=== PATIENT | male | born 1935 | race Caucasian/White ===

== ENCOUNTER → 2017-01-31 | Outpatient (CLI) | payer MEDICARE ==
[2017-01-31 09:33] LABS: ANION GAP 12 (5-19); BLOOD UREA NITROGEN 23 mg/dL (7-20); CALCIUM 9.7 mg/dL (8.4-10.2); CARBON DIOXIDE 23 mmol/L (22-30); CHLORIDE 107 mmol/L (98-107); CREATININE RESULT 1.38 mg/dL (0.52-1.25); GLUCOSE 103 mg/dL (75-110); POTASSIUM 4.3 mmol/L (3.6-5.0); SODIUM 141.6 mmol/L (137-145)
== END ==
LOC: LAB 08:52
PROVIDERS: ATTEND Internal Medicine Nephrology
DX: I12.9 Hypertensive chronic kidney disease with stage 1 through stage 4 chronic kidney disease, or unspecified chronic kidney disease (principal); N18.3 Chronic kidney disease, stage 3 (moderate)
CPT/HCPCS: 36415; 80048

== ENCOUNTER → 2017-04-24 | Outpatient (CLI) | payer MEDICARE ==
[2017-04-24 11:03] LABS: ABSOLUTE BASOPHILS # (AUTO) 0.1 10^3/uL (0.0-0.2); ABSOLUTE EOSINOPHILS # (AUTO) 0.4 10^3/uL (0.0-0.6); ABSOLUTE LYMPHOCYTES (AUTO) 1.8 10^3/uL (0.5-4.7); ABSOLUTE MONOCYTES (AUTO) 0.9 10^3/uL (0.1-1.4); ABSOLUTE NEUT (AUTO) 4.1 10^3/uL (1.7-8.2); BASOPHILS % (AUTO) 1.2 % (0-2); EOSINOPHILS % (AUTO) 5.9 % (0-6); HEMATOCRIT 47.7 % (37.9-51.0); HEMOGLOBIN 15.9 g/dL (13.5-17.0); LYMPHOCYTES % (AUTO) 24.6 % (13-45); MEAN CORPUSCULAR HEMOGLOBIN 32.5 pg (27.0-33.4); MEAN CORPUSCULAR HGB CONC 33.3 g/dL (32.0-36.0); MEAN CORPUSCULAR VOLUME 98 fl (80-97); MONOCYTES % (AUTO) 12.5 % (3-13); RED BLOOD COUNT 4.89 10^6/uL (4.35-5.55); RED CELL DISTRIBUTION WIDTH 12.9 % (11.5-14.0); SEGMENTED NEUTROPHILS % (AUTO) 55.8 % (42-78); WHITE BLOOD COUNT 7.4 10^3/uL (4.0-10.5)
[2017-04-24 11:40] LABS: IRON 93.2 ug/dL (49-181)
== END ==
LOC: LAB 10:50
PROVIDERS: ATTEND Specialist
DX: R10.9 Unspecified abdominal pain (principal); D50.9 Iron deficiency anemia, unspecified
CPT/HCPCS: 36415; 82728; 83540; 85025

== ENCOUNTER 2017-05-14 08:26 | Day surgery (SDC) | payer MEDICARE ==
--- NOTE | 2017-05-08 11:00 | HISTORY AND PHYSICAL E ---
History and Physical NAME: DAKOTAH LOCKHART : 1935 AGE: 81Y ADMITTED: 05/14/2017 ROOM: CHIEF COMPLAINT: Abdominal pain. EXAM: Upper endoscopy. HISTORY OF PRESENT ILLNESS: The patient does have history of colorectal polyps. At this time he presented with abdominal pain. Patient for upper endoscopy. I saw him 2011. His colon showed diverticulosis. SOCIAL HISTORY: He used to smoke, drinks socially, , 2 children. ALLERGIES: Negative. REVIEW OF SYSTEMS: RESPIRATORY: COPD. CARDIAC: No chest pain. ENDOCRINE: Negative. PHYSICAL EXAMINATION: VITAL SIGNS: Blood pressure 120/70, pulse 80, respirations 18, temperature is 98. HEAD, EYES, EARS, NOSE AND THROAT: Normal. ABDOMEN: Soft. NEUROLOGIC EXAM: Negative. PAST MEDICAL HISTORY: The patient is known to have coronary artery disease. He is on Plavix and he takes baby aspirin. Scope 2011 shows descending colon polyp, ectasia in the cecum. 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 The patient was done 2011. Another colonoscopy done in the year 2015. Again, diverticulosis, question AV malformation in the cecum, COPD, sleep apnea. CONCLUSION: Abdominal pain. PLAN: Upper scope scheduled for 05/14. Stop Plavix and aspirin 3 days prior to endoscopy regarding abdominal pain. DICTATING PHYSICIAN: AMELIE CASE M.D. [id number] PHY#: [id number] ID: [id number] JOB#: [id number] ACCT: [id number] cc:AMELIE CASE M.D. >
[~2017-05-14 08:26] MED LIST: EPINEPHRINE INJ 1 MG/10 ML DISP.SYRIN ONE; FENTANYL CITRATE INJ/PF 100 MCG/2 ML AMPUL ONE; FLUMAZENIL INJ 0.5 MG/5 ML VIAL ONE; GLYCOPYRROLATE INJ 0.4 MG/2 ML VIAL ONE; NALOXONE HCL INJ/PF 0.4 MG/1 ML SDV ONE; ONDANSETRON HCL INJ/PF 4 MG/2 ML SDV ONE
[2017-05-14] MEDS: MIDAZOLAM 2 MG/2 ML INJ ONE ×2 (09:07→09:10)
[2017-05-14 10:36] VITALS: BP 105/59
--- NOTE | 2017-05-14 12:23 | DISCHARGE SUMMARY E ---
Discharge Summary NAME: DAKOTAH LOCKHART : 1935 AGE: 81Y ADMITTED: 05/14/2017 DISCHARGED: 05/14/2017 PROCEDURE: EGD. HISTORY: This 81-year-old patient presented with dysphagia. Patient is a cardiac patient. He has stents. He takes Plavix and aspirin. Today's upper scope shows no definitive stricture, question lower esophageal ring, question early narrowing, some erosions at the GE junction. Because of the cardiac risk, I did not feel the urge to dilate today. I am going to obtain a barium swallow and discharge him on a soft, baby food, nonchewable diet. If the barium swallow shows definite stricture I am going to stop his Plavix for 5 days and aspirin 5 days. There was some friability at the junction just passing the scope. For future endoscopy, we will stop his Plavix for 5 days and aspirin 5 days and consider dilatation if the barium swallow shows a stricture. DICTATING PHYSICIAN: AMELIE CASE M.D. [id number] Y#: [id number] ID: [id number] JOB#: [id number] ACCT: [id number] cc:AMELIE CASE M.D. >
--- NOTE | 2017-05-14 13:45 | OPERATIVE REPORT E ---
Operative Report NAME: DAKOTAH LOCKHART : 1935 AGE: 81Y DATE OF SURGERY: 05/14/2017 ROOM: PREOPERATIVE DIAGNOSIS: Dysphagia. POSTOPERATIVE DIAGNOSES: 1. Esophagitis, mild. 2. Possibility of early stricture. 3. Possibility of lower esophageal ring. 4. Mild gastritis. 5. Mild duodenitis. PROCEDURE: 1. Esophagoscopy. 2. Gastroscopy. 3. Duodenoscopy. SURGEON: AMELIE CASE M.D. ANESTHESIA: Versed 3 and fentanyl 50. TISSUE REMOVED OR ALTERED: None. PROCEDURE: Baby scope passed under guided vision. No difficulties. Esophagoscopy junction at 40. There is possibility of early lower esophageal ring. Possibility of early stricture. Gastroscopy: Mild gastritis. Duodenoscopy: Mild duodenitis. Patient is a cardiac patient and a stent. We stopped his Plavix and aspirin for 3 days. I did not feel that the stricture is severe or definite, so I am going to hold on dilatation today. I am going to do barium swallow and see if the stricture is definite. We will bring him back after we stop his Plavix 5 days and aspirin. Consider dilatation at that time if the stricture is definite on barium swallow. By endoscopy, the scope goes in and out with no difficulties and it may be early stricture. There was some erosions at the GE junction. Patient to be started on Dexilant 60 daily. Patient to be discharged on soft, non-chewable diet pending barium enema. CONCLUSION: 1. Question early esophageal stricture. 2. Question lower esophageal ring. 3. Mild esophagitis. 4. Mild gastritis. 5. Mild duodenitis. DICTATING PHYSICIAN: AMELIE CASE M.D. [id number] PHY#: [id number] ID: [id number] JOB#: [id number] ACCT: [id number] cc:AMELIE CASE M.D. >
== END 2017-05-14 10:45 | disposition home or self-care (01) ==
LOC: END 08:26
PROVIDERS: ATTEND Specialist
PROC: 0DJD8ZZ Inspection of Lower Intestinal Tract, Via Natural or Artificial Opening Endoscopic (ICD-10-PCS; principal; 2017-05-14 09:00)
DX: R10.9 Unspecified abdominal pain (principal); J44.9 Chronic obstructive pulmonary disease, unspecified; K29.70 Gastritis, unspecified, without bleeding; K29.80 Duodenitis without bleeding; K20.9 Esophagitis, unspecified; I25.10 Atherosclerotic heart disease of native coronary artery without angina pectoris; Z79.02 Long term (current) use of antithrombotics/antiplatelets; Z79.82 Long term (current) use of aspirin
CPT/HCPCS: 43235; J2250; J3010; J0171; J2310; J2405; J3490

== ENCOUNTER 2017-05-15 07:52 | Emergency (ER) | payer MEDICARE ==
[2017-05-15 08:36] LABS: VENOUS BLOOD BASE EXCESS -2.3 mmol/L; VENOUS BLOOD HCO3 22.7 mmol/L (20-32); VENOUS BLOOD PH 7.37 (7.30-7.42)
[2017-05-15 08:38] LABS: ABSOLUTE EOSINOPHILS # (AUTO) 0.1 10^3/uL (0.0-0.6); ABSOLUTE LYMPHOCYTES (AUTO) 0.9 10^3/uL (0.5-4.7); ABSOLUTE MONOCYTES (AUTO) 1.2 10^3/uL (0.1-1.4); ABSOLUTE NEUT (AUTO) 10.5 10^3/uL (1.7-8.2); BASOPHILS % (AUTO) 0.2 % (0-2); EOSINOPHILS % (AUTO) 0.4 % (0-6); HEMATOCRIT 49.8 % (37.9-51.0); HGB HCT DIFFERENCE 1.2; LYMPHOCYTES % (AUTO) 7.3 % (13-45); MEAN CORPUSCULAR HEMOGLOBIN 32.6 pg (27.0-33.4); MEAN CORPUSCULAR HGB CONC 34.1 g/dL (32.0-36.0); MEAN CORPUSCULAR VOLUME 96 fl (80-97); MONOCYTES % (AUTO) 9.7 % (3-13); RED BLOOD COUNT 5.22 10^6/uL (4.35-5.55); RED CELL DISTRIBUTION WIDTH 13.1 % (11.5-14.0); SEGMENTED NEUTROPHILS % (AUTO) 82.4 % (42-78); WHITE BLOOD COUNT 12.8 10^3/uL (4.0-10.5)
[2017-05-15 08:41] LABS: PROTHROMBIN TIME 13.4 SEC (11.4-15.4)
[2017-05-15 08:42] LABS: APPEARANCE,URINE CLEAR; BILIRUBIN,URINE NEGATIVE (NEGATIVE); GLUCOSE, URINE NEGATIVE (NEGATIVE); KETONES,URINE NEGATIVE (NEGATIVE); LEUKOCYTE ESTERASE,URINE NEGATIVE (NEGATIVE); NITRITE,URINE NEGATIVE (NEGATIVE); PROTEIN,URINE NEGATIVE (NEGATIVE); URINE SPECIFIC GRAVITY 1.023; UROBILINOGEN,URINE NEGATIVE mg/dL (<2.0)
[2017-05-15 08:56] LABS: ALANINE AMINOTRANSFERASE 20 U/L (21-72); ALBUMIN 4.4 g/dL (3.5-5.0); ALKALINE PHOSPHATASE 82 U/L (38-126); ANION GAP 13 (5-19); ASPARTATE AMINO TRANSFERASE 15 U/L (17-59); BILIRUBIN,DIRECT 0.4 mg/dL (0.0-0.4); BILIRUBIN,TOTAL 0.7 mg/dL (0.2-1.3); BLOOD UREA NITROGEN 25 mg/dL (7-20); CALCIUM 10.3 mg/dL (8.4-10.2); CARBON DIOXIDE 24 mmol/L (22-30); CHLORIDE 104 mmol/L (98-107); CREATININE RESULT 1.62 mg/dL (0.52-1.25); GLUCOSE 146 mg/dL (75-110); POTASSIUM 4.7 mmol/L (3.6-5.0); SODIUM 141.4 mmol/L (137-145)
--- NOTE | 2017-05-15 08:57 | RADIOLOGY REPORT (SQ) ---
EXAM DESCRIPTION: CHEST PA/LAT COMPLETED DATE/TIME: 05/15/2017 8:44 am REASON FOR STUDY: chest pain abd pain post egd COMPARISON: Chest x-ray dated 03/27/2016 and 05/05/2012. Chest CT dated 09/02/2012. EXAM PARAMETERS: NUMBER OF VIEWS: two views TECHNIQUE: Digital Frontal and Lateral radiographic views of the chest acquired. RADIATION DOSE: NA LIMITATIONS: none FINDINGS: LUNGS AND PLEURA: Prominent interstitial densities. Scattered calcified pleural plaques. Density in the right apex with pleural thickening. No definite focal infiltrates. No large pleural effusion. No pneumothorax. MEDIASTINUM AND HILAR STRUCTURES: No masses or contour abnormalities. HEART AND VASCULAR STRUCTURES: Heart normal size. No evidence for failure. BONES: No acute findings. HARDWARE: None in the chest. OTHER: No other significant finding. IMPRESSION: STABLE CHRONIC CHANGES INCLUDING PARENCHYMAL SCARRING AND CALCIFIED PLEURAL PLAQUES. 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 NO DEFINITE ACUTE FINDINGS. TECHNICAL DOCUMENTATION: JOB ID: [id number]- All Rights Reserved
[2017-05-15] MEDS ORDERED: NORMAL SALINE 1000 ML 1,000 ML IV ONE (09:05)
--- NOTE | 2017-05-15 10:04 | EKG REPORT ---
SEVERITY:- ABNORMAL ECG - SINUS TACHYCARDIA VENTRICULAR BIGEMINY BORDERLINE LEFT AXIS DEVIATION : Confirmed by: Viri Sánchez MD 15-May-2017 10:03:00
--- NOTE | 2017-05-15 11:12 | RADIOLOGY REPORT (SQ) ---
EXAM DESCRIPTION: BARIUM SWALLOW ESOPHAGUS COMPLETED DATE/TIME: 05/15/2017 10:05 am REASON FOR STUDY: post egd pain COMPARISON: None. TECHNIQUE: Under fluoroscopic guidance, patient ingested water-soluble contrast. Fluoroscopic spot i mages and routine radiographic images acquired and stored on PACS. 12 MM BARIUM TABLET GIVEN: No LIMITATIONS: None. FLUOROSCOPY TIME: 3 minutes 16 images saved to PACS. FINDINGS: NEUROMUSCULAR COORDINATION OF SWALLOW: Normal. No aspiration. ESOPHAGEAL MOTILITY: Normal peristalsis. No esophageal spasm. ESOPHAGEAL MUCOSA: Normal mucosa without masses or ulceration. GASTRO-ESOPHAGEAL JUNCTION: No hiatal hernia or reflux. NON-GI TRACT STRUCTURES: No significant finding. OTHER: Note is made of pleural plaque at the bases of each lung. IMPRESSION: NORMAL SINGLE CONTRAST SWALLOW. NO EVIDENCE FOR CONTRAST LEAK. COMMENT: None Quality ID [id number]: Final reports for procedures using fluoroscopy that document radiation exposure cuco sahara, or exposure time and number of fluorographic images (if radiation exposure indices are not avail able) TECHNICAL DOCUMENTATION: JOB ID: [id number] [employer]- All Rights Reserved
--- NOTE | 2017-05-15 11:23 | ER Document Report ---
ED General - General Chief Complaint: Abdominal Pain Stated Complaint: ABDOMINAL PAIN,VOMITING,DIARRHEA Time Seen by Provider: 05/15/17 08:03 Mode of Arrival: Ambulatory Information source: Patient Notes: 81-year-old male presents with complaints of epigastric abdominal pain after an EGD was performed. Patient denies any fevers or chills admits to nausea vomiting passing gas TRAVEL OUTSIDE OF THE [place] IN LAST 30 DAYS: No - HPI Onset: Just prior to arrival Onset/Duration: Sudden Quality of pain: Achy Severity: Mild Pain Level: 1 Associated symptoms: Nausea, Vomiting Exacerbated by: Denies Relieved by: Denies Similar symptoms previously: Yes Recently seen / treated by doctor: Yes - Related Data Allergies/Adverse Reactions: No Known Allergies Allergy (Verified 05/15/17 07:56) Home Medications: Current Home Medications Atorvastatin Calcium [Lipitor 40 mg Tablet] 40 mg PO QHS 05/15/17 [History] Past Medical History - Social History Smoking Status: Former Smoker Cigarette use (# per day): No Chew tobacco use (# tins/day): No Smoking Education Provided: No Frequency of alcohol use: None Drug Abuse: None Family History: Reviewed & Not Pertinent - Past Medical History Cardiac Medical History: Reports: Hx Coronary Artery Disease - CARDIAC STENT X 2 / RAPID HEART RATE, Hx Heart Attack - 04/02 2 STENTS PLACED, Hx Hypercholesterolemia, Hx Hypertension Pulmonary Medical History: Reports: Hx COPD Denies: Hx Asthma, Hx Bronchitis, Hx Pneumonia Neurological Medical History: Denies: Hx Cerebrovascular Accident, Hx Seizures Renal/ Medical History: Denies: Hx Peritoneal Dialysis GI Medical History: Denies: Hx Hepatitis, Hx Hiatal Hernia, Hx Ulcer Musculoskeltal Medical History: 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 Denies: Hx Open Heart Surgery, Hx Pacemaker - Immunizations Hx Diphtheria, Pertussis, Tetanus Vaccination: No Hx Pneumococcal Vaccination: 06/18/12 Review of Systems - Review of Systems Notes: REVIEW OF SYSTEMS: CONSTITUTIONAL : Denies fever, chills, or sweats. Denies recent illness. EENT: Denies eye, ear, throat, or mouth pain or symptoms. Denies nasal or sinus congestion or discharge. Denies throat, tongue, or mouth swelling or difficulty swallowing. CARDIOVASCULAR: Denies chest pain. Denies palpitations or racing or irregular heart beat. Denies ankle edema. RESPIRATORY: Denies cough, cold, or chest congestion. Denies shortness of breath, difficulty breathing, or wheezing. GASTROINTESTINAL: Admits to abdominal pain nausea vomiting GENITOURINARY: Denies difficulty urinating, painful urination, burning, frequency, blood in urine, or discharge. MUSCULOSKELETAL: Denies back or neck pain or stiffness. Denies joint pain or swelling. SKIN: Denies rash, lesions or sores. HEMATOLOGIC : Denies easy bruising or bleeding. LYMPHATIC: Denies swollen, enlarged glands. NEUROLOGICAL: Denies confusion or altered mental status. Denies passing out or loss of consciousness. Denies dizziness or lightheadedness. Denies headache. Denies weakness or paralysis or loss of use of either side. Denies problems with gait or speech. Denies sensory loss, numbness, or tingling. Denies seizures. PSYCHIATRIC: Denies anxiety or stress. Denies depression, suicidal ideation, or homicidal ideation. ALL OTHER SYSTEMS REVIEWED AND NEGATIVE. Dictation was performed using [employer] voice recognition software PHYSICAL EXAMINATION: GENERAL: Well-appearing, well-nourished and in no acute distress. HEAD: Atraumatic, normocephalic. EYES: Pupils equal round and reactive to light, extraocular movements intact, sclera anicteric, conjunctiva are normal. ENT: Nares patent, oropharynx clear without exudates. Moist mucous membranes. NECK: Normal range of motion, supple without lymphadenopathy LUNGS: Breath sounds clear to auscultation bilaterally and equal. No wheezes rales or rhonchi. HEART: Regular rate and rhythm without murmurs ABDOMEN: Soft, minimally tender in the epigastric region Musculoskeletal: Normal range of motion, no pitting or edema. No cyanosis. NEUROLOGICAL: Cranial nerves grossly intact. Normal speech, normal gait. Normal sensory, motor exams PSYCH: Normal mood, normal affect. SKIN: Warm, Dry, normal turgor, no rashes or lesions noted. Physical Exam - Vital signs Vitals: Temp Pulse Resp BP Pulse Ox 97.7 F 119 H 20 127/68 H 94 05/15/17 07:56 05/15/17 07:56 05/15/17 07:56 05/15/17 07:56 05/15/17 07:56 Course - Re-evaluation Re-evalutation: 05/15/17 15:43 Concern was for an esophageal rupture secondary to the EGD, patient's x-ray was negative a barium swallow was performed which noted no leakage of contrast. Patient's GI specialist Dr. Adkins presented to the ED and evaluated the patient as well and was appreciative of the care Patient was discharged home with very close follow-up he is very happy with this plan After performing a Medical Screening Examination, I estimate there is LOW risk for ACUTE APPENDICITIS, BOWEL OBSTRUCTION, ACUTE CHOLECYSTITIS, PERFORATED DIVERTICULITIS, INCARCERATED HERNIA, PANCREATITIS, or PERFORATED ULCER, thus I consider the discharge disposition reasonable. Also, there is no evidence or peritonitis, sepsis, or toxicity. I have reevaluated this patient multiple times and no significant life threatening changes are noted. The patient and I have discussed the diagnosis and risks, and we agree with discharging home with close follow-up with the understanding that symptoms and presentations can change. We also discussed returning to the Emergency Department immediately if new or worsening symptoms occur. We have discussed the symptoms which are most concerning (e.g., bloody stool, fever, changing or worsening pain, intractable vomiting - standard verbal up date) that necessitate immediate return. - Vital Signs Vital signs: Temp Pulse Resp BP Pulse Ox 98.4 F 92 20 131/79 H 95 05/15/17 11:42 05/15/17 11:42 05/15/17 07:56 05/15/17 11:42 05/15/17 11:42 - Laboratory Result Diagrams: 05/15/17 08:25 05/15/17 08:25 Laboratory results interpreted by me: 05/15/17 05/15/17 05/15/17 08:25 08:25 08:25 WBC 12.8 H Seg Neutrophils % 82.4 H Lymphocytes % 7.3 L Absolute Neutrophils 10.5 H BUN 25 H Creatinine 1.62 H Est GFR ( Amer) 50 L Est GFR (Non-Af Amer) 41 L Glucose 146 H POC Glucose Lactic Acid 2.4 H Calcium 10.3 H AST 15 L ALT 20 L 05/15/17 08:33 WBC Seg Neutrophils % Lymphocytes % Absolute Neutrophils BUN Creatinine Est GFR ( Amer) Est GFR (Non-Af Amer) Glucose POC Glucose 132 H Lactic Acid Calcium AST ALT - Diagnostic Test Radiology reviewed: Image reviewed, Reports reviewed - No acute abnormality Discharge - Discharge Clinical Impression: Abdominal pain Qualifiers: Abdominal location: epigastric Qualified Code(s): R10.13 - Epigastric pain Nausea & vomiting Qualifiers: Vomiting type: unspecified Vomiting Intractability: non-intractable Qualified Code(s): R11.2 - Nausea with vomiting, unspecified Condition: Stable Disposition: HOME, SELF-CARE Instructions: Abdominal Pain ([facility]) Prescriptions: Ondansetron HCl [Zofran 8 mg Tablet] 8 mg PO Q8HP PRN #30 tablet PRN Reason: Famotidine [Pepcid 20 mg Tablet] 20 mg PO DAILY #30 tablet Referrals: LEONIDAS HAN MD [Primary Care Provider] - Follow up as needed AMELIE ADKINS MD [EMERITUS] - Follow up tomorrow
[2017-05-15 11:46] VITALS: BP 131/79
== END 2017-05-15 11:46 | disposition home or self-care (01) ==
LOC: ER 07:52
DX: R10.13 Epigastric pain (principal); R11.2 Nausea with vomiting, unspecified; R19.7 Diarrhea, unspecified; Z87.891 Personal history of nicotine dependence; I25.10 Atherosclerotic heart disease of native coronary artery without angina pectoris; I25.2 Old myocardial infarction
CPT/HCPCS: 93005; 99284; 36415; 87040; 87086; 82962; 85025; 85610; 80053; 81001; 82803; 83605; 71020; 74220; 93010; J7030

== ENCOUNTER → 2017-07-28 | Outpatient (CLI) | payer MEDICARE ==
[2017-07-28 09:02] LABS: HEMATOCRIT 46.3 % (37.9-51.0); HEMOGLOBIN 15.8 g/dL (13.5-17.0); HGB HCT DIFFERENCE 1.1; MEAN CORPUSCULAR HEMOGLOBIN 32.8 pg (27.0-33.4); MEAN CORPUSCULAR HGB CONC 34.2 g/dL (32.0-36.0); MEAN CORPUSCULAR VOLUME 96 fl (80-97); RED BLOOD COUNT 4.82 10^6/uL (4.35-5.55); RED CELL DISTRIBUTION WIDTH 13.8 % (11.5-14.0); WHITE BLOOD COUNT 7.4 10^3/uL (4.0-10.5)
[2017-07-28 09:51] LABS: ANION GAP 13 (5-19); BLOOD UREA NITROGEN 23 mg/dL (7-20); CALCIUM 9.5 mg/dL (8.4-10.2); CARBON DIOXIDE 26 mmol/L (22-30); CHLORIDE 106 mmol/L (98-107); CREATININE RESULT 1.43 mg/dL (0.52-1.25); GLUCOSE 100 mg/dL (75-110); POTASSIUM 4.6 mmol/L (3.6-5.0); SODIUM 145.1 mmol/L (137-145)
== END ==
LOC: LAB 08:47
PROVIDERS: ATTEND Internal Medicine Nephrology
DX: N18.3 Chronic kidney disease, stage 3 (moderate) (principal); I12.9 Hypertensive chronic kidney disease with stage 1 through stage 4 chronic kidney disease, or unspecified chronic kidney disease
CPT/HCPCS: 36415; 80048; 85027

== ENCOUNTER → 2018-02-09 | Outpatient (CLI) | payer MEDICARE ==
[2018-02-09 09:15] LABS: HEMATOCRIT 45.5 % (37.9-51.0); HEMOGLOBIN 15.5 g/dL (13.5-17.0); MEAN CORPUSCULAR HEMOGLOBIN 32.7 pg (27.0-33.4); MEAN CORPUSCULAR VOLUME 96 fl (80-97); PLATELET COUNT 212 10^3/uL (150-450); RED BLOOD COUNT 4.74 10^6/uL (4.35-5.55); RED CELL DISTRIBUTION WIDTH 13.5 % (11.5-14.0); WHITE BLOOD COUNT 6.9 10^3/uL (4.0-10.5)
[2018-02-09 09:42] LABS: ANION GAP 8 (5-19); BLOOD UREA NITROGEN 24 mg/dL (7-20); CALCIUM 9.6 mg/dL (8.4-10.2); CARBON DIOXIDE 29 mmol/L (22-30); CHLORIDE 108 mmol/L (98-107); GLUCOSE 103 mg/dL (75-110); POTASSIUM 4.7 mmol/L (3.6-5.0); SODIUM 145.4 mmol/L (137-145)
== END ==
LOC: LAB 08:57
PROVIDERS: ATTEND Internal Medicine Nephrology
DX: I12.9 Hypertensive chronic kidney disease with stage 1 through stage 4 chronic kidney disease, or unspecified chronic kidney disease (principal); N18.4 Chronic kidney disease, stage 4 (severe)
CPT/HCPCS: 36415; 80048; 85027

== ENCOUNTER → 2018-08-21 | Outpatient (CLI) | payer MEDICARE ==
[2018-08-21 09:35] LABS: APPEARANCE,URINE CLEAR; BILIRUBIN,URINE NEGATIVE (NEGATIVE); COLOR,URINE YELLOW; GLUCOSE, URINE NEGATIVE (NEGATIVE); KETONES,URINE NEGATIVE (NEGATIVE); LEUKOCYTE ESTERASE,URINE NEGATIVE (NEGATIVE); NITRITE,URINE NEGATIVE (NEGATIVE); PROTEIN,URINE NEGATIVE (NEGATIVE); URINE SPECIFIC GRAVITY 1.021; UROBILINOGEN,URINE NEGATIVE mg/dL (<2.0)
[2018-08-21 09:35] LABS: HEMATOCRIT 48.4 % (37.9-51.0); HEMOGLOBIN 16.9 g/dL (13.5-17.0); MEAN CORPUSCULAR HEMOGLOBIN 33.2 pg (27.0-33.4); MEAN CORPUSCULAR HGB CONC 34.8 g/dL (32.0-36.0); MEAN CORPUSCULAR VOLUME 95 fl (80-97); PLATELET COUNT 204 10^3/uL (150-450); RED BLOOD COUNT 5.08 10^6/uL (4.35-5.55); RED CELL DISTRIBUTION WIDTH 12.7 % (11.5-14.0); WHITE BLOOD COUNT 5.4 10^3/uL (4.0-10.5)
[2018-08-21 10:32] LABS: ANION GAP 9 (5-19); BLOOD UREA NITROGEN 22 mg/dL (7-20); CALCIUM 9.9 mg/dL (8.4-10.2); CARBON DIOXIDE 27 mmol/L (22-30); CHLORIDE 106 mmol/L (98-107); GLUCOSE 107 mg/dL (75-110); POTASSIUM 4.6 mmol/L (3.6-5.0); SODIUM 142.2 mmol/L (137-145)
== END ==
LOC: LAB 09:13
PROVIDERS: ATTEND Internal Medicine Nephrology
DX: I12.9 Hypertensive chronic kidney disease with stage 1 through stage 4 chronic kidney disease, or unspecified chronic kidney disease (principal); N18.4 Chronic kidney disease, stage 4 (severe)
CPT/HCPCS: 36415; 80048; 81001; 85027

== ENCOUNTER → 2019-02-19 | Outpatient (CLI) | payer MEDICARE ==
[2019-02-19 08:57] LABS: HEMATOCRIT 46.1 % (37.9-51.0); HEMOGLOBIN 15.7 g/dL (13.5-17.0); MEAN CORPUSCULAR HEMOGLOBIN 32.4 pg (27.0-33.4); MEAN CORPUSCULAR VOLUME 95 fl (80-97); PLATELET COUNT 202 10^3/uL (150-450); RED BLOOD COUNT 4.85 10^6/uL (4.35-5.55); RED CELL DISTRIBUTION WIDTH 13.6 % (11.5-14.0); WHITE BLOOD COUNT 8.9 10^3/uL (4.0-10.5)
[2019-02-19 09:21] LABS: ANION GAP 7 (5-19); BLOOD UREA NITROGEN 22 mg/dL (7-20); CARBON DIOXIDE 27 mmol/L (22-30); CHLORIDE 104 mmol/L (98-107); GLUCOSE 102 mg/dL (75-110); POTASSIUM 4.7 mmol/L (3.6-5.0); SODIUM 137.7 mmol/L (137-145)
== END ==
LOC: LAB 08:42
PROVIDERS: ATTEND Internal Medicine Nephrology
DX: I12.9 Hypertensive chronic kidney disease with stage 1 through stage 4 chronic kidney disease, or unspecified chronic kidney disease (principal); N18.3 Chronic kidney disease, stage 3 (moderate)
CPT/HCPCS: 36415; 80048; 85027

== ENCOUNTER 2020-03-02 03:31 | Emergency (ER) | payer MEDICARE ==
[2020-03-02] MEDS ORDERED: RINGERS SOLUTION,LACTATED 1,000 ML IV ONE (07:35)
[2020-03-02 08:10] LABS: HEMATOCRIT 44.5 % (37.9-51.0); HEMOGLOBIN 15.3 g/dL (13.5-17.0); MEAN CORPUSCULAR HEMOGLOBIN 33.3 pg (27.0-33.4); MEAN CORPUSCULAR HGB CONC 34.3 g/dL (32.0-36.0); MEAN CORPUSCULAR VOLUME 97 fl (80-97); PLATELET COUNT 141 10^3/uL (150-450); RED BLOOD COUNT 4.59 10^6/uL (4.35-5.55); RED CELL DISTRIBUTION WIDTH 13.5 % (11.5-14.0); WHITE BLOOD COUNT 6.1 10^3/uL (4.0-10.5)
[2020-03-02 08:32] LABS: ALBUMIN 3.7 g/dL (3.5-5.0); ALKALINE PHOSPHATASE 72 U/L (38-126); ANION GAP 7 (5-19); ASPARTATE AMINO TRANSFERASE 28 U/L (17-59); BILIRUBIN,TOTAL 0.5 mg/dL (0.2-1.3); BLOOD UREA NITROGEN 22 mg/dL (7-20); CALCIUM 8.9 mg/dL (8.4-10.2); CARBON DIOXIDE 27 mmol/L (22-30); CHLORIDE 100 mmol/L (98-107); CREATINE KINASE 186 U/L (55-170); GLUCOSE 107 mg/dL (75-110); POTASSIUM 4.4 mmol/L (3.6-5.0); TOTAL PROTEIN 7.1 g/dL (6.3-8.2)
--- NOTE | 2020-03-02 08:35 | RADIOLOGY REPORT (SQ) ---
EXAM DESCRIPTION: CHEST SINGLE VIEW IMAGES COMPLETED DATE/TIME: 03/02/2020 8:26 am REASON FOR STUDY: Micturition syncope COMPARISON: 05/15/2017 EXAM PARAMETERS: NUMBER OF VIEWS: One view. TECHNIQUE: Single frontal radiographic view of the chest acquired. RADIATION DOSE: NA LIMITATIONS: None. FINDINGS: LUNGS AND PLEURA: Chronic appearing interstitial lung disease. Calcified pleural plaque. Blunting of both costophrenic angles which is stable most likely chronic. No pneumothorax. MEDIASTINUM AND HILAR STRUCTURES: No masses. Contour normal. HEART AND VASCULAR STRUCTURES: Stable in appearance. BONES: No acute findings. HARDWARE: None in the chest. OTHER: No other significant finding. IMPRESSION: Chronic bilateral pleural and parenchymal changes as described. No acute findings. TECHNICAL DOCUMENTATION: JOB ID: [id number] [employer]- All Rights Reserved Reading location - IP/workstation name: [email or web address]
--- NOTE | 2020-03-02 08:43 | ER Document Report ---
Entered by ISIDRA AGUILA SCRIBE 03/02/20 0732 Acting as scribe for:FRED TORRES MD ED Syncope and Near Syncope - General Chief Complaint: Fall Stated Complaint: FALL Time Seen by Provider: 03/02/20 07:13 Primary Care Provider: Serena ORTEGA MD [ACTIVE STAFF] - Follow up as needed Mode of Arrival: Ambulatory Information source: Patient Notes: This 84 year old male patient presents to the emergency department today with complaints of syncope. Patient reports that the last two nights he was standing up to urinate when he passed out. reported that today it "took her longer to wake him up" than it did yesterday after his syncopal event. Patient mentions that he has not had an appetite for the last few days he has had some nasal congestion and a mild cough. Patient states he has been taking Tylenol chest/cold for this and it seems to have been improving. Patient denies a history of BPH. The patient reports that he had been tested for COVID at the beginning of this month. [place] to include his son who is involved with high school football practice and [facility] where there had been some positive tests on that football team. His son had been tested but is still not gotten results back. TRAVEL OUTSIDE OF THE [place] IN LAST 30 DAYS: No - Related Data Allergies/Adverse Reactions: No Known Allergies Allergy (Verified 03/02/20 07:23) Home Medications: Metoprolol Past Medical History - General Information source: Patient - Social History Smoking Status: Former Smoker Cigarette use (# per day): No Chew tobacco use (# tins/day): No Frequency of alcohol use: Occasional Drug Abuse: None Lives with: Family Family History: Reviewed & Not Pertinent - Past Medical History Cardiac Medical History: Reports: Hx Coronary Artery Disease - CARDIAC STENT X 2/ RAPID HEART RATE, Hx Heart Attack - 04/02 2 STENTS PLACED, Hx Hypercholesterolemia, Hx Hypertension Pulmonary Medical History: Reports: Hx COPD Musculoskeletal Medical History: Reports Hx Arthritis - generalized Past Surgical History: Reports: Hx Abdominal Surgery - Immunizations Hx Diphtheria, Pertussis, Tetanus Vaccination: No Hx Pneumococcal Vaccination: 06/18/12 Review of Systems - Review of Systems Constitutional: See HPI, Other - no appetite EENT: See HPI, Nose congestion Cardiovascular: See HPI, Syncope Respiratory: See HPI, Cough Gastrointestinal: No symptoms reported Genitourinary: No symptoms reported Male Genitourinary: No symptoms reported Musculoskeletal: No symptoms reported Skin: No symptoms reported Hematologic/Lymphatic: No symptoms reported Neurological/Psychological: No symptoms reported -: Yes All other systems reviewed and negative Physical Exam - Vital signs Vitals: Resp Pulse Ox 16 93 03/02/20 03:36 03/02/20 03:36 - Notes Notes: Physical Exam: General: Alert, appears well. HEENT: Nasal sinus congestion. Normocephalic. Atraumatic. PERRL. Extraocular movements intact. Oropharynx clear. Neck: Supple. Non-tender. Respiratory: No respiratory distress. Rhonchi with forced cough bilaterally. Cardiovascular: Regular rate and rhythm. Abdominal: Normal Inspection. Non-tender. No distension. Normal Bowel Sounds. Back: No gross abnormalities. Extremities: Moves all four extremities. Upper extremities: Normal inspection. Normal ROM. Lower extremities: Normal inspection. No edema. Normal ROM. Neurological: Normal cognition. AAOx4. Normal speech. Psychological: Normal affect. Normal Mood. Skin: Warm. Dry. Normal color. Course - Re-evaluation Re-evalutation: 03/02/20 11:25 CBC, Chem-12, cardiac enzymes, urinalysis, - Vital Signs Vital signs: Temp Pulse Resp BP Pulse Ox 98.8 F 17 146/57 H 93 03/02/20 07:33 03/02/20 13:01 03/02/20 13:01 03/02/20 13:01 - Laboratory Result Diagrams: 03/02/20 04:45 03/02/20 04:45 Laboratory results interpreted by me: 03/02/20 03/02/20 03/02/20 04:45 04:45 10:50 Plt Count 141 L Band Neutrophils % 2 L Lymphocytes % (Manual) 2 L Monocytes % (Manual) 19 H Abs Lymphs (Manual) 0.1 L Sodium 133.8 L BUN 22 H Creatinine 1.70 H Est GFR ( Amer) 47 L Est GFR (MDRD) Non-Af 39 L Creatine Kinase 186 H Urine Blood SMALL H - Diagnostic Test Radiology reviewed: Image reviewed, Reports reviewed - Chronic pleural and parenchymal changes. - EKG Interpretation by Me EKG shows normal: Sinus rhythm, [place], Intervals, QRS Complexes, ST-T Waves Rate: Normal Rhythm: NSR When compared to previous EKG there are: Other - The first EKG that was done was poor quality, but did suggest lateral injury. The initial troponin was undetectable. The repeat EKG about 8 hours later is recorded as above, and it is completely normal. Discharge - Discharge Clinical Impression: Micturition syncope, Bronchitis, Encounter for laboratory testing for COVID-19 virus Condition: Stable Disposition: HOME, SELF-CARE Additional Instructions: Syncopal Episode Syncope (fainting or near-fainting) can occur from many different health problems. Or it can be a simple fainting spell requiring no treatment. It is safe for you to go home, but further evaluation will likely be necessary. Your work-up may include tests for internal bleeding, heart disease, medication problems, or near-strokes. Tests are not always required, however, depending on the nature of your problem. The warning signs of an impending faint include: dizziness, lightheadedness, nausea, hot flashes, tingling, and weakness. If this happens, lay down and put your feet up, then wait until all of these symptoms have passed before standing up again. If these episodes become recurrent, or if you develop chest pain, heart palpitations, mental confusion, blurred vision, or headache, then you should call the physician, or go to the emergency room. The 2 episodes of blacking out your report both occurred while you are standing up to urinate during the night. This is called micturition syncope, it is passing out due to a drop in blood pressure while you may be standing's upright and straining to urinate. You should try to make a conscious effort to sit down on the toilet when you have to urinate in the evening to prevent further blackout episodes. You should also drink plenty of fluids throughout the day in the evening so that you remain well-hydrated and do not risk having your blood pressure fall when you stand up at night. You were tested for the COVID-19 virus today, results are usually back in about 3 days. You should self isolate until you get the results of the testing. Dr. [facility]isc[facility] will have his office staff call you to schedule a time tomorrow to come into their office and have the blueprint cutter put on. RETURN TO THE EMERGENCY ROOM IF ANY NEW OR WORSENING SYMPTOMS. You are being tested for the virus that causes coronavirus disease 2019 (COVID- 19). Public health actions are necessary to ensure protection of your health and the health of others, and to prevent further spread of infection. COVID-19 is caused by a virus that can cause symptoms, such as fever, cough, and shortness of breath. The primary transmission from person to person is by coughing or sneezing. On September 16, 2019, the World Health Organization an nounced the public health emergency of international concern and on September 17, 2019 the [place] Department of Health and Human Services declared a public health emergency. If the virus that causes COVID-19 spreads in the community, it could have severe public health consequences. As a person under investigation for COVID-19, the [place] Department of Health and Human Services, division of public health advise you to adhere to the following guidance until your test results are reported to you. If your test result is positive, you will receive additional information from your provider and your local health department at that time. Remain at home until your provider or public health officials inform you that your test was negative or until all of the following criteria are met 1) At le ast 72 hours have passed since recovery defined as resolution of fever without the use of fever-reducing medications and improvement in respiratory symptoms (e.g. cough, shortness of breath) 2) at least 7 days have passed since your symptoms first appeared. Keep a log of visitors to your home using the form provided. Notify any visitors to your home of your isolation status. If you plan to move to a new address or leave the county, notify the local health department in your county. Call a doctor or seek care if you have an urgent medical need. Before seeking medical care, call ahead and get instructions from the provider before arriving at the medical office, clinic or hospital. Notify them that you are being tested for the virus that causes COVID-19 so that arrangements can be made, as necessary, to prevent transmission to others in the healthcare setting. Next, notify your local health department in your county. If a medical emergency arises and you need to call 911, inform the first responders that you are being tested for the virus that causes COVID-19. Next, notify the local health department and your County. Adhere to all guidance set forth by the [place] division of public health for home care of patients that is based on guidance from the Centers for Disease Control and Prevention with suspected or confirmed COVID-19. Your health and the health of our community are top priorities. [place] [facility] officials remain available to provide assistance and counseling T about COVID-19 and compliance with his guidance. Referrals: PRISCILLA NOONAN MD [ACTIVE STAFF] - Follow up tomorrow (The office is supposed to call you to schedule a time tomorrow to come get a monitor put on.) I personally performed the services described in the documentation, reviewed and edited the documentation which was dictated to the scribe in my presence, and it accurately records my words and actions.
[2020-03-02 08:53] LABS: ABSOLUTE LYMPHOCYTES# (MANUAL) 0.1 10^3/uL (0.5-4.7); ABSOLUTE MONOCYTES # (MANUAL) 1.2 10^3/uL (0.1-1.4); BAND NEUTROPHILS % (MANUAL) 2 % (3-5); BASOPHILS % (MANUAL) 1 % (0-2); EOSINOPHILS % (MANUAL) 3 % (0-6); LYMPHOCYTES % (MANUAL) 2 % (13-45); MONOCYTES % (MANUAL) 19 % (3-13); SEGMENTED NEUTROPHILS % (MAN) 73 % (42-78); TOTAL CELLS COUNTED 100
[2020-03-02 08:54] LABS: PLATELET COMMENT DECREASED; RBC MORPHOLOGY COMMENT NORMO-CYTIC/CHROMIC
[2020-03-02 11:15] LABS: APPEARANCE,URINE CLEAR; BILIRUBIN,URINE NEGATIVE (NEGATIVE); COLOR,URINE YELLOW; GLUCOSE, URINE NEGATIVE (NEGATIVE); KETONES,URINE NEGATIVE (NEGATIVE); LEUKOCYTE ESTERASE,URINE NEGATIVE (NEGATIVE); NITRITE,URINE NEGATIVE (NEGATIVE); PROTEIN,URINE NEGATIVE (NEGATIVE); URINE SPECIFIC GRAVITY 1.014; UROBILINOGEN,URINE NEGATIVE mg/dL (<2.0)
--- NOTE | 2020-03-02 13:24 | EKG REPORT ---
SEVERITY:- NORMAL ECG - SINUS RHYTHM : Confirmed by: Ravinder Kennedy MD 02-Mar-2020 13:23:32
--- NOTE | 2020-03-02 13:25 | EKG REPORT ---
SEVERITY:- ABNORMAL ECG - SINUS RHYTHM PROLONGED QT INTERVAL : Confirmed by: Ravinder Kennedy MD 02-Mar-2020 13:24:16
[2020-03-02 15:12] VITALS: BP 131/114
== END 2020-03-02 15:00 | disposition home or self-care (01) ==
LOC: ER 03:31
DX: U07.1 COVID-19 (principal); J40 Bronchitis, not specified as acute or chronic; R55 Syncope and collapse; I25.10 Atherosclerotic heart disease of native coronary artery without angina pectoris; E78.00 Pure hypercholesterolemia, unspecified; I10 Essential (primary) hypertension; Z20.828 Contact with and (suspected) exposure to other viral communicable diseases
CPT/HCPCS: 93005; 99284; 96360; 96361; 36415; 87040; 82550; 85025; 87077; 80053; 81001; 84484; 87186; 87150 ×26; 71045; 93010; U0003; J7120; C9803; 87635

== ENCOUNTER 2020-03-12 17:19 | Inpatient (IN) | payer MEDICARE ==
[2020-03-12] MEDS ORDERED: IPRATROPIUM/ALBUTEROL 0.5-2.5 MG/3 ML AMPUL NEB ONE (18:20)
[2020-03-12] MEDS ORDERED: NORMAL SALINE 1000 ML 1,000 ML IV ONE (18:21)
[2020-03-12] MEDS ORDERED: DEXAMETHASONE SOD PHOS INJ 10 MG/1 ML VIAL IV ONE (18:21)
--- NOTE | 2020-03-12 18:59 | RADIOLOGY REPORT (SQ) ---
EXAM DESCRIPTION: CHEST SINGLE VIEW IMAGES COMPLETED DATE/TIME: 03/12/2020 5:42 pm REASON FOR STUDY: COVID+ SOB hypoxia COMPARISON: 03/02/2020 EXAM PARAMETERS: NUMBER OF VIEWS: One view. TECHNIQUE: Single frontal radiographic view of the chest acquired. RADIATION DOSE: NA LIMITATIONS: None. FINDINGS: LUNGS AND PLEURA: There is worsening consolidation in the right upper lobe, right lower lo be, and left peripheral upper and lower lobes. No pleural effusion or pneumothorax. MEDIASTINUM AND HILAR STRUCTURES: No masses. Contour normal. HEART AND VASCULAR STRUCTURES: Heart normal in size. Normal vasculature. BONES: No acute findings. HARDWARE: None in the chest. OTHER: No other significant finding. IMPRESSION: Worsening areas of consolidation in both lungs. TECHNICAL DOCUMENTATION: JOB ID: [id number] 2010 [employer]- All Rights Reserved Reading location - IP/workstation name: [id number]
[2020-03-12 19:07] LABS: ABSOLUTE EOSINOPHILS # (AUTO) 0.1 10^3/uL (0.0-0.6); ABSOLUTE LYMPHOCYTES (AUTO) 0.6 10^3/uL (0.5-4.7); ABSOLUTE MONOCYTES (AUTO) 0.9 10^3/uL (0.1-1.4); ABSOLUTE NEUT (AUTO) 6.9 10^3/uL (1.7-8.2); BASOPHILS % (AUTO) 0.2 % (0-2); EOSINOPHILS % (AUTO) 1.5 % (0-6); HEMATOCRIT 41.2 % (37.9-51.0); HEMOGLOBIN 14.4 g/dL (13.5-17.0); LYMPHOCYTES % (AUTO) 6.8 % (13-45); MEAN CORPUSCULAR HGB CONC 34.9 g/dL (32.0-36.0); MEAN CORPUSCULAR VOLUME 95 fl (80-97); MONOCYTES % (AUTO) 10.6 % (3-13); PLATELET COUNT 295 10^3/uL (150-450); RED BLOOD COUNT 4.36 10^6/uL (4.35-5.55); SEGMENTED NEUTROPHILS % (AUTO) 80.9 % (42-78); TOTAL CELLS COUNTED % (AUTO) 100 %; WHITE BLOOD COUNT 8.5 10^3/uL (4.0-10.5)
[2020-03-12 19:10] LABS: FIBRINOGEN 865 mg/dL (209-497); INTERNATIONAL RATION (INR) 1.12; PROTHROMBIN TIME 14.5 SEC (11.4-15.4)
[2020-03-12 19:11] LABS: PARTIAL THROMBOPLASTIN TIME 33.3 SEC (23.5-35.8)
[2020-03-12 19:14] LABS: ALBUMIN 3.6 g/dL (3.5-5.0); ALKALINE PHOSPHATASE 104 U/L (38-126); ANION GAP 10 (5-19); ASPARTATE AMINO TRANSFERASE 53 U/L (17-59); BILIRUBIN,DIRECT 0.2 mg/dL (0.0-0.4); BLOOD UREA NITROGEN 23 mg/dL (7-20); CALCIUM 9.2 mg/dL (8.4-10.2); CARBON DIOXIDE 20 mmol/L (22-30); CHLORIDE 103 mmol/L (98-107); GLUCOSE 117 mg/dL (75-110); POTASSIUM 4.6 mmol/L (3.6-5.0); TOTAL PROTEIN 7.5 g/dL (6.3-8.2)
[2020-03-12 19:25] LABS: NT PRO BNP 180 pg/mL (<450)
[2020-03-12 19:38] LABS: TROPONIN I < 0.012 ng/mL
--- NOTE | 2020-03-12 19:45 | ER Document Report ---
ED General - General Chief Complaint: Fever Stated Complaint: CHEST PAIN TRAVEL OUTSIDE OF THE [place] IN LAST 30 DAYS: No - HPI Notes: 84-year-old male history of COPD (no prior intubations, no home O2), hypertension hyperlipidemia CAD presents with persistent fever and shortness of breath after covered diagnosis. Patient began having symptoms February 27 and had positive flu test March 02. Since then patient has had persistent fevers and shortness of breath. Patient endorses dry cough, denies chest pain despite chief complaint having been listed as chest pain. - Related Data Allergies/Adverse Reactions: No Known Allergies Allergy (Verified 03/02/20 07:23) Past Medical History - General Information source: Patient - Social History Smoking Status: Former Smoker Frequency of alcohol use: None Drug Abuse: None Family History: Reviewed & Not Pertinent - Past Medical History Cardiac Medical History: Reports: Hx Coronary Artery Disease - CARDIAC STENT X 2/ RAPID HEART RATE, Hx Heart Attack - 04/02 2 STENTS PLACED, Hx Hypercholesterolemia, Hx Hypertension Pulmonary Medical History: Reports: Hx COPD Denies: Hx Asthma, Hx Bronchitis, Hx Pneumonia Neurological Medical History: Denies: Hx Cerebrovascular Accident, Hx Seizures Renal/ Medical History: Denies: Hx Peritoneal Dialysis GI Medical History: Denies: Hx Hepatitis, Hx Hiatal Hernia, Hx Ulcer Musculoskeletal Medical History: 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 Denies: Hx Open Heart Surgery, Hx Pacemaker - Immunizations Hx Diphtheria, Pertussis, Tetanus Vaccination: No Hx Pneumococcal Vaccination: 06/18/12 Review of Systems - Review of Systems Notes: REVIEW OF SYSTEMS: CONSTITUTIONAL : + fever, +chills, or sweats. EENT: Denies recent cold/sinus symptoms, denies throat pain CARDIOVASCULAR: Denies chest pain, JELLY RESPIRATORY: + cough, + shortness of breath. GASTROINTESTINAL: Denies abdominal pain, nausea/vomiting. GENITOURINARY: Denies difficulty urinating, painful urination. MUSCULOSKELETAL: Denies neck pain, back pain. SKIN: Denies rash or skin lesions. HEMATOLOGIC : Denies easy bruising or bleeding. LYMPHATIC: Denies swollen, enlarged glands. NEUROLOGICAL: Denies headache, denies change in gait. PSYCHIATRIC: Denies anxiety or stress or depression. Physical Exam - Vital signs Vitals: Temp Pulse Resp BP Pulse Ox 97.9 F 106 H 23 H 116/55 L 86 L 03/12/20 17:20 03/12/20 17:20 03/12/20 17:20 03/12/20 17:20 03/12/20 17:20 - Notes Notes: PHYSICAL EXAMINATION: GENERAL: Mildly uncomfortable appearing but no signs of acute distress. HEAD: Atraumatic, normocephalic. EYES: Pupils equal round and appropriate constriction, sclera anicteric, conjunctiva are normal. ENT: nares patent, dry mucous membranes, nasal cannula in place NECK: Normal range of motion, supple without lymphadenopathy LUNGS: Mildly tachypneic, no accessory muscle use, speaking in few word sentences, good air movement, bilateral expiratory wheezing HEART: Borderline tachycardic with regular rhythm, no murmurs rubs or gallops ABDOMEN: Soft, nontender, no guarding, no masses, no CVAT EXTREMITIES: Normal range of motion, no pitting or edema. No cyanosis. NEUROLOGICAL: Awake, alert, conversing appropriately, moves all extremities spontaneously. PSYCH: Normal mood, normal affect. SKIN: Warm, Dry, normal turgor, no rashes or lesions noted. Course - Re-evaluation Re-evalutation: 03/12/20 19:43 Patient with fever and shortness of breath positive COVID diagnosis, pr esentation consistent with worsening respiratory status secondary to COVID complicated by COPD. No acute respiratory distress, but patient is hypoxic requiring 5 L of nasal cannula to maintain O2 saturation above 91 to 93%. Patient clinically dehydrated likely secondary to 2 weeks of fever with great insensible losses, will give conservative fluid bolus over 2 hours. Patient requiring admission given hypoxia, discussed case with hospitalist Dr. Meade who has accepted patient to medical floor although patient will be housed in [facility]. - Vital Signs Vital signs: Temp Pulse Resp BP Pulse Ox 98.2 F 96 14 130/65 H 92 03/12/20 22:00 03/13/20 00:00 03/13/20 00:00 03/12/20 22:00 03/13/20 00:00 - Laboratory Result Diagrams: 03/12/20 17:40 03/12/20 17:40 Laboratory results interpreted by me: 03/12/20 03/12/20 03/12/20 17:40 17:40 17:40 Lymph % (Auto) 6.8 L Seg Neutrophils % 80.9 H Fibrinogen 865 H D-Dimer VBG HCO3 Sodium 132.5 L Carbon Dioxide 20 L BUN 23 H Est GFR (MDRD) Non-Af 56 L Glucose 117 H Free T3 pg/mL 03/12/20 03/12/20 03/12/20 17:40 17:40 20:10 Lymph % (Auto) Seg Neutrophils % Fibrinogen D-Dimer 3.89 H VBG HCO3 19.8 L Sodium Carbon Dioxide BUN Est GFR (MDRD) Non-Af Glucose Free T3 pg/mL 2.50 L Discharge - Discharge Clinical Impression: COVID-19, COPD exacerbation, Hypoxia Disposition: ADMITTED INPATIENT Admitting Provider: Deshaun (Hospitalist) Unit Admitted: Medical Floor
[2020-03-12] MEDS ORDERED: RINGERS SOLUTION,LACTATED 1,000 ML IV PRN (20:25)
[2020-03-12 20:27] LABS: VENOUS BLOOD BASE EXCESS -5.7 mmol/L; VENOUS BLOOD HCO3 19.8 mmol/L (20-32); VENOUS BLOOD PCO2 38.8 mmHg (35-63); VENOUS BLOOD PH 7.33 (7.30-7.42)
[2020-03-12] MEDS ORDERED: METOPROLOL TARTRATE PF/INJ 5 MG/5 ML SDV IV PRN (20:29)
[2020-03-12] MEDS ORDERED: PROMETHAZINE HCL INJ 25 MG/1 ML VIAL IV PRN (20:29)
[2020-03-12] MEDS ORDERED: MORPHINE SULFATE 10 MG/ML INJ IV PRN ×4 (20:29→23:15)
[2020-03-12] MEDS ORDERED: ACETAMINOPHEN 325 MG TABLET PO PRN (20:29)
[2020-03-12] MEDS ORDERED: LORAZEPAM INJ 2 MG/1 ML VIAL IV PRN (20:29)
[2020-03-12] MEDS ORDERED: LEVALBUTEROL HCL NEB 0.63 MG/3 ML AMPUL NEB PRN (20:29)
[2020-03-12] MEDS ORDERED: MAGNESIUM HYDROXIDE SUSP 30 ML UDCUP PO PRN (20:29)
[2020-03-12] MEDS ORDERED: MAG HYDROX/AL HYDROX/SIMETH SUSP 30 ML UDCUP PO PRN (20:29)
[2020-03-12] MEDS ORDERED: HYDRALAZINE HCL INJ/PF 20 MG/1 ML SDV IV PRN (20:29)
[2020-03-12] MEDS ORDERED: GUAIFENESIN SYRP 200 MG/10 ML UDC PO PRN (20:29)
[2020-03-12] MEDS ORDERED: AZITHROMYCIN 500 MG in DEXTROSE 5%-WATER 250 ML IV SCH (21:00)
[2020-03-12] MEDS ORDERED: CEFTRIAXONE 1 GM/D5W RTU 50 ML IV SCH (21:00)
[2020-03-12] MEDS: FAMOTIDINE 20 MG TABLET PO SCH (21:19)
[2020-03-12] MEDS: ENOXAPARIN SODIUM INJ 100 MG/1 ML DISP.SYRIN SUBCUT SCH (21:19)
[2020-03-12] MEDS ORDERED: AZITHROMYCIN 500 MG in DEXTROSE 5%-WATER 250 ML IV ONE (23:00)
[2020-03-12] MEDS ORDERED: CEFTRIAXONE 1 GM/D5W RTU 1 GM/50 ML RTUPB IV ONE (23:00)
[2020-03-12] MEDS ORDERED: AZITHROMYCIN INJ 500 MG VIAL IV PRN (23:13)
[2020-03-13] MEDS: MELATONIN 5 MG TABLET PO PRN ×2 (00:20→22:09)
[2020-03-13] MEDS ORDERED: AZITHROMYCIN INJ 500 MG VIAL IV ONE ×2 (02:23→23:34)
--- NOTE | 2020-03-13 04:39 | PDOC H&P ---
History of Present Illness Admission Date/PCP: 03/12/2020 19:48 LEONIDAS HAN MD Patient complains of: Dyspnea History of Present Illness: DAKOTAH AU is a 84 year old male who presented the emergency room with a two-week history of dyspnea. Patient admits progressively worsening dyspnea over the course of the last 2 weeks becoming severe today. His dyspnea has been accompanied by a nonproductive cough and associated with a persistent subjective fever. His dyspnea is worsened by activity and exertion. He tested positive for COVID-19 on 03/05/2020 and was being treated conservatively at home by his primary care provider. He denies other associated or accompanying signs and sym ptoms. He admits prior similar episodes related to his COPD. He has not identified any additional aggravating or ameliorating factors for his dyspnea. In the emergency room he was found to be hypoxic requiring supplemental oxygen to maintain an adequate O2 saturation. Chest x-ray showed bilateral pneumonia. Patient was subsequently admitted to the hospital for further evaluation and treatment on the COVID-19 unit. Past Medical History Cardiac Medical History: Reports: Coronary Artery Disease, Myocardial Infarction - 03/2016, Hyperlipidema, Hypertension, Other - Tachycardia Denies: Atrial Fibrillation, Congestive Heart Failure, DVT, Peripheral Vas cular Disease, Pulmonary Embolism, Heart Murmur Pulmonary Medical History: Reports: Chronic Obstructive Pulmonary Disease (COPD), Sleep Apnea Denies: Asthma, Bronchitis, Pneumonia EENT Medical History: Reports: Cataracts, Eyes - Wears glasses Denies: Ears - Hearing aids Neurological Medical History: Denies: Hemorrhagic CVA, Ischemic CVA, Seizures Endocrine Medical History: Reports: Hypothyroidism Denies: Diabetes Mellitus Type 1, Diabetes Mellitus Type 2, Hyperthyroidism Renal/ Medical History: Denies: Chronic Kidney Disease, Nephrolithiasis Malignancy Medical History: Reports: None GI Medical History: Reports: Diverticulitis, Gastroesophageal Reflux Disease - With esophagitis, Other - Adenomatous polyps of the colon Denies: Cirrhosis, Crohn's Disease, Hepatitis, Hiatal Hernia, Peptic Ulcer Disease, Ulcerative Colitis Musculoskeltal Medical History: Reports: Arthritis - Multiple joints Denies: Gout Skin Medical History: Denies: Eczema, Psoriasis Psychiatric Medical History: Reports: Tobacco Dependency Denies: Alcohol Dependency, Substance Abuse Traumatic Medical History: Reports: None Hematology: Denies: Anemia, Bleeding Tendencies Infectious Medical History: Reports: None Past Surgical History Past Surgical History: Reports: Cardiac Catheterization, Coronary Stent, Other - EGD & biopsy, colonoscopy & polypectomy, sigmoid resection, cataracts OU Social History Information Source: Patient Lives with: Spouse/Significant other Smoking Status: Former Smoker Electronic Cigarette use?: No Frequency of Alcohol Use: Occasional Hx Recreational Drug Use: No Drugs: None Hx Prescription Drug Abuse: No - Advance Directive Resuscitation Status: Full Code Surrogate healthcare decision maker:: Jazmyn Au Family History Family History: denies: CAD, DM, Hypertension, Malignancy Parental Family History Reviewed: Yes Children Family History Reviewed: No Sibling(s) Family History Reviewed.: Yes Medication/Allergy Home Medications: Metoprolol Succinate 50 mg PO DAILY 05/04/14 Aspirin [Aspirin 81 mg Chewable Tablet] 81 mg PO DAILY 05/14/17 Clopidogrel Bisulfate [Clopidogrel] 75 mg PO DAILY 05/14/17 Nitroglycerin 0.3 mg SL ASDIR PRN 05/14/17 Tiotropium Craig [Spiriva] 18 mcg IH DAILY 05/14/17 Atorvastatin Calcium [Lipitor 40 mg Tablet] 40 mg PO QHS 05/15/17 Famotidine [Pepcid 20 mg Tablet] 20 mg PO DAILY #30 tablet 05/15/17 Ondansetron HCl [Zofran 8 mg Tablet] 8 mg PO Q8HP PRN #30 tablet 05/15/17 Allergies/Adverse Reactions: No Known Allergies Allergy (Verified 03/02/20 07:23) Review of Systems Constitutional: PRESENT: as per HPI, fever(s). ABSENT: chills Eyes: ABSENT: visual disturbances, other - Eye pain Ears: ABSENT: hearing changes, other - Ear pain low none Nose, Mouth, and Throat: ABSENT: headache(s) - Wound wound, sore throat Cardiovascular: PRESENT: as per HPI, dyspnea on exertion. ABSENT: chest pain, edema, orthropnea, palpitations Respiratory: PRESENT: cough, dyspnea. ABSENT: hemoptysis, sputum Gastrointestinal: ABSENT: abdominal pain, constipation, diarrhea, nausea, vomiting Genitourinary: ABSENT: dysuria, hematuria Musculoskeletal: ABSENT: back pain, joint swelling Integumentary: ABSENT: pruritus, rash Neurological: ABSENT: confusion, convulsions, focal weakness, memory loss, syncope Psychiatric: ABSENT: anxiety, depression Endocrine: ABSENT: cold intolerance, heat intolerance Hematologic/Lymphatic: ABSENT: easy bleeding, easy bruising Allergic/Immunologic: ABSENT: seasonal rhinorrhea Physical Exam Vital Signs: Temp Pulse Resp BP Pulse Ox 97.9 F 101 H 12 116/63 89 L 03/12/20 17:20 03/12/20 17:43 03/12/20 19:01 03/12/20 19:01 03/12/20 19:01 Intake & Output 03/10/20 03/11/20 03/12/20 23:59 23:59 23:59 Weight 82.554 kg General appearance: PRESENT: cooperative, mild distress - Secondary to dyspnea Head exam: PRESENT: atraumatic, normocephalic Eye exam: PRESENT: conjunctiva pink. ABSENT: conjunctival injection, scleral icterus Ear exam: PRESENT: normal external ear exam. ABSENT: bleeding, drainage Mouth exam: PRESENT: dry mucosa, neck supple Neck exam: ABSENT: thyromegaly, tracheal deviation Respiratory exam: PRESENT: accessory muscle use, decreased breath sounds - Mildly decreased breath sounds throughout all [place], prolonged expiratory phas - Moderately prolonged expiratory phase, symmetrical, tachypnea, wheezes - Moderate expiratory wheezes in all [place]. ABSENT: rales, rhonchi Cardiovascular exam: PRESENT: RRR. ABSENT: clicks, gallop, rubs Pulses: PRESENT: normal radial pulses, normal dorsalis pedis pul Vascular exam: PRESENT: normal capillary refill. ABSENT: pallor GI/Abdominal exam: PRESENT: normal bowel sounds, soft. ABSENT: tenderness Rectal exam: PRESENT: deferred Extremities exam: ABSENT: joint swelling, pedal edema Musculoskeletal exam: ABSENT: deformity, dislocation Neurological exam: PRESENT: alert, oriented to person, oriented to place, oriented to time, oriented to situation, CN II-XII grossly intact. ABSENT: motor sensory deficit Psychiatric exam: PRESENT: appropriate affect, normal mood Skin exam: PRESENT: dry, intact, warm. ABSENT: jaundice, rash, urticaria Results Laboratory Results: 03/12/20 17:40 03/12/20 17:40 03/12/20 03/12/20 17:40 17:40 WBC 8.5 RBC 4.36 Hgb 14.4 Hct 41.2 MCV 95 MCH 33.0 MCHC 34.9 RDW 14.0 Plt Count 295 Seg Neutrophils % 80.9 H Sodium 132.5 L Potassium 4.6 Chloride 103 Carbon Dioxide 20 L Anion Gap 10 BUN 23 H Creatinine 1.24 Est GFR ( Amer) > 60 Glucose 117 H Calcium 9.2 Total Bilirubin 1.0 AST 53 Alkaline Phosphatase 104 Total Protein 7.5 Albumin 3.6 03/12/20 17:40 Troponin I < 0.012 NT-Pro-B Natriuret Pep 180 Impressions: Chest X-Ray 03/12/20 18:17 IMPRESSION: Worsening areas of consolidation in both lungs. Assessment and Plan - Diagnosis (1) Pneumonia due to COVID-19 virus Is this a current diagnosis for this admission?: Yes (2) Acute infective exacerbation of chronic obstructive airway disease Is this a current diagnosis for this admission?: Yes (3) Acute respiratory failure with hypoxia Is this a current diagnosis for this admission?: Yes (4) Obstructive sleep apnea Is this a current diagnosis for this admission?: Yes (5) Coronary artery disease Qualifiers: Coronary Disease-Associated Artery/Lesion type: [place] artery [place] vs. transplanted heart: [place] heart Associated angina: without angina Qualified Code(s): I25.10 - Atherosclerotic heart disease of [place] coronary artery without angina pectoris Is this a current diagnosis for this admission?: Yes (6) Hypertension Qualifiers: Hypertension type: essential hypertension Qualified Code(s): I10 - Essential (primary) hypertension Is this a current diagnosis for this admission?: Yes (7) Hyperlipidemia Qualifiers: Hyperlipidemia type: unspecified Qualified Code(s): E78.5 - Hyperlipidemia, unspecified Is this a current diagnosis for this admission?: Yes - Plan Summary Summary: Patient will be admitted to the [facility] unit as a medical floor patient where he will receive routine supportive and symptomatic cares. He will be treated with intravenous dexamethasone 2 mg every 8 hours. He will receive Lovenox 1 mg/kg subcutaneously every 12 hours. He will receive intravenous Rocephin and azithromycin. He will receive an aggressive pulmonary toilet utilizing Xopenex, Atrovent and Pulmicort. He will receive supplemental oxygen via nasal cannula and/or noninvasive airway pressure support devices such as BiPAP in order to maintain his oxygen saturation at a satisfactory level and ease his work of breathing. A d-dimer, lipid profile, COVID-19 profile and thyroid profile will be obtained. CBCs, metabolic profiles, magnesium levels and additional labor atory and/or radiographic evaluations will be obtained as appropriate. Patient will use Ativan 1 mg IV every 4 hours as needed for anxiety or restlessness. He will use morphine sulfate 2 to 4 mg IV every 2 hours as needed for pain. He will receive lactated Ringer's solution IV at 125 mL/h for the first 24 hours and then fluid therapy will be reassessed. He will be placed on a cardiac diet. - Time Time Spent with patient: 15-24 minutes Medications reviewed and adjusted accordingly: Yes Anticipated Discharge Disposition: Home with Home Health Anticipated Discharge: Other - Undetermined - Inpatient Certification Based on my medical assessment, after consideration of the patient's comorbidities, presenting symptoms, or acuity I expect that the services needed warrant INPATIENT care.: Yes I certify that my determination is in accordance with my understanding of Medicare's requirements for reasonable and necessary INPATIENT services [42 CFR 412.3e].: Yes Medical Necessity: Failure to Improve With Outpatient Therapy, Significant Comorbidiites Make Outpatient Treatment Too Risky, Need Close Monitoring Due to Risk of Patient Decompensation, Need for Nebulizer Therapy and Monitoring of Response, Need for IV Antibiotics, Risk of Complication if Not Cared For in Hospital
[2020-03-13 07:11] LABS: VENOUS BLOOD BASE EXCESS -4.2 mmol/L; VENOUS BLOOD HCO3 21.1 mmol/L (20-32); VENOUS BLOOD PH 7.34 (7.30-7.42)
[2020-03-13 07:13] LABS: HEMATOCRIT 40.2 % (37.9-51.0); MEAN CORPUSCULAR HEMOGLOBIN 33.3 pg (27.0-33.4); MEAN CORPUSCULAR HGB CONC 34.9 g/dL (32.0-36.0); MEAN CORPUSCULAR VOLUME 95 fl (80-97); PLATELET COUNT 251 10^3/uL (150-450); RED BLOOD COUNT 4.21 10^6/uL (4.35-5.55); WHITE BLOOD COUNT 5.1 10^3/uL (4.0-10.5)
[2020-03-13 07:37] LABS: ANION GAP 7 (5-19); BLOOD UREA NITROGEN 22 mg/dL (7-20); CALCIUM 8.8 mg/dL (8.4-10.2); CARBON DIOXIDE 22 mmol/L (22-30); CHLORIDE 110 mmol/L (98-107); CHOLESTEROL 138.87 mg/dL (0-200); GLUCOSE 163 mg/dL (75-110); POTASSIUM 4.4 mmol/L (3.6-5.0); TRIGLYCERIDES 121 mg/dL (<150)
[2020-03-13 07:48] LABS: DIRECT LDL 72 mg/dL (<100)
[2020-03-13] MEDS ORDERED: BUDESONIDE NEB 0.5 MG/2 ML AMPUL NEB SCH (08:00)
[2020-03-13] MEDS ORDERED: ALBUTEROL SULFATE HFA (90 MCG/PUFF) 8 GM MDI IH PRN (08:16)
[2020-03-13] MEDS ORDERED: ALBUTEROL SULFATE HFA (90 MCG/PUFF) 200 PUFF/8.5 GM MDI IH PRN (08:28)
[2020-03-13 08:33] LABS: APPEARANCE,URINE CLEAR; BILIRUBIN,URINE NEGATIVE (NEGATIVE); COLOR,URINE YELLOW; GLUCOSE, URINE 50 mg/dL (NEGATIVE); KETONES,URINE NEGATIVE (NEGATIVE); PROTEIN,URINE NEGATIVE (NEGATIVE); URINE SPECIFIC GRAVITY 1.011; UROBILINOGEN,URINE NEGATIVE mg/dL (<2.0)
[2020-03-13] MEDS: LEVALBUTEROL HCL NEB 1.25 MG/3 ML AMPUL NEB SCH ×3 (09:25→15:48)
[2020-03-13] MEDS: IPRATROPIUM BROMIDE 0.02% NEB 0.5 MG/2.5 ML AMPUL NEB SCH ×3 (09:25→15:48)
[2020-03-13] MEDS: ASCORBIC ACID 500 MG TABLET PO SCH (10:44)
[2020-03-13] MEDS: FAMOTIDINE 20 MG TABLET PO SCH ×2 (10:44→22:09)
[2020-03-13] MEDS: ZINC SULFATE 220 MG CAPSULE PO SCH (10:44)
[2020-03-13] MEDS: DOCUSATE SODIUM 100 MG CAPSULE PO SCH ×2 (10:44→17:50)
[2020-03-13] MEDS: CHOLECALCIFEROL (D3) 1,000 UNIT (25 MCG) TABLET PO SCH (10:44)
[2020-03-13] MEDS: GUAIFENESIN 600 MG TABLET.SA PO SCH ×2 (10:44→22:09)
[2020-03-13] MEDS: ENOXAPARIN SODIUM INJ 100 MG/1 ML DISP.SYRIN SUBCUT SCH ×2 (10:45→22:12)
[2020-03-13] MEDS: RINGERS SOLUTION,LACTATED 1,000 ML IV PRN (11:25)
[2020-03-13] MEDS: DEXAMETHASONE SOD PHOSPHATE INJ 4 MG/1 ML VIAL IV SCH ×2 (14:07→22:10)
[2020-03-13] MEDS ORDERED: REMDESIVIR (EUA) 200 MG in NORMAL SALINE 250 ML IV ONE (15:30)
[2020-03-13] MEDS ORDERED: NITROGLYCERIN 0.4 MG/TAB 25 TAB/BOTTLE SL PRN (17:56)
[2020-03-13] MEDS ORDERED: ALBUTEROL SULFATE HFA (90 MCG/PUFF) 8 GM MDI IH SCH (18:00)
--- NOTE | 2020-03-13 18:07 | PDOC PROGRESS REPORT ---
Subjective Progress Note for:: 03/13/20 Subjective:: Patient states that he feels fatigued and has diarrhea. Admits to loss of taste. This limits his food intake. Denies using oxygen at home. Reason For Visit: COVID-19 PNEUMONIA,ACUTE EXACERBATION OF CHRONIC Physical Exam Vital Signs: Temp Pulse Resp BP Pulse Ox 97.8 F 89 20 126/56 H 93 03/13/20 14:45 03/13/20 15:50 03/13/20 15:50 03/13/20 14:45 03/13/20 15:50 Intake & Output 03/12/20 03/13/20 03/14/20 06:59 06:59 06:59 Intake Total 1300 1000 Balance 1300 1000 Weight 83 kg General appearance: PRESENT: no acute distress, cooperative Neck exam: ABSENT: JVD Respiratory exam: PRESENT: crackles, symmetrical, unlabored. ABSENT: tachypnea, wheezes Cardiovascular exam: PRESENT: RRR, +S1, +S2. ABSENT: tachycardia GI/Abdominal exam: PRESENT: soft. ABSENT: rebound, rigid, tenderness Extremities exam: ABSENT: pedal edema Neurological exam: PRESENT: alert, awake, oriented to person, oriented to place, oriented to time Results Laboratory Results: 03/13/20 06:57 03/13/20 06:57 03/12/20 03/12/20 03/12/20 17:40 17:40 17:40 WBC 8.5 RBC 4.36 Hgb 14.4 Hct 41.2 MCV 95 MCH 33.0 MCHC 34.9 RDW 14.0 Plt Count 295 Seg Neutrophils % 80.9 H VBG pH VBG pCO2 VBG HCO3 VBG Base Excess Sodium 132.5 L Potassium 4.6 Chloride 103 Carbon Dioxide 20 L Anion Gap 10 BUN 23 H Creatinine 1.24 Est GFR ( Amer) > 60 Glucose 117 H Calcium 9.2 Magnesium Total Bilirubin 1.0 AST 53 Alkaline Phosphatase 104 Total Protein 7.5 Albumin 3.6 Triglycerides Cholesterol LDL Cholesterol Direct VLDL Cholesterol HDL Cholesterol TSH Free T3 pg/mL 2.50 L Urine Color Urine Appearance Urine pH Ur Specific [place] Urine Protein Urine Glucose (UA) Urine Ketones Urine Blood 03/12/20 03/13/20 03/13/20 20:10 06:57 06:57 WBC 5.1 RBC 4.21 L Hgb 14.0 Hct 40.2 MCV 95 MCH 33.3 MCHC 34.9 RDW 14.0 Plt Count 251 Seg Neutrophils % VBG pH 7.33 VBG pCO2 38.8 VBG HCO3 19.8 L VBG Base Excess -5.7 Sodium 138.5 Potassium 4.4 Chloride 110 H Carbon Dioxide 22 Anion Gap 7 BUN 22 H Creatinine 1.05 Est GFR ( Amer) > 60 Glucose 163 H Calcium 8.8 Magnesium 2.5 H Total Bilirubin AST Alkaline Phosphatase Total Protein Albumin Triglycerides 121 Cholesterol 138.87 LDL Cholesterol Direct 72 VLDL Cholesterol 24.0 HDL Cholesterol 32 L TSH Free T3 pg/mL Urine Color Urine Appearance Urine pH Ur Specific [place] Urine Protein Urine Glucose (UA) Urine Ketones Urine Blood 03/13/20 03/13/20 03/13/20 06:57 06:57 08:05 WBC RBC Hgb Hct MCV MCH MCHC RDW Plt Count Seg Neutrophils % VBG pH 7.34 VBG pCO2 40.0 VBG HCO3 21.1 VBG Base Excess -4.2 Sodium Potassium Chloride Carbon Dioxide Anion Gap BUN Creatinine Est GFR ( Amer) Glucose Calcium Magnesium Total Bilirubin AST Alkaline Phosphatase Total Protein Albumin Triglycerides Cholesterol LDL Cholesterol Direct VLDL Cholesterol HDL Cholesterol TSH 0.92 Free T3 pg/mL Urine Color YELLOW Urine Appearance CLEAR Urine pH 6.0 Ur Specific [place] 1.011 Urine Protein NEGATIVE Urine Glucose (UA) 50 H Urine Ketones NEGATIVE Urine Blood NEGATIVE 03/12/20 17:40 Troponin I < 0.012 NT-Pro-B Natriuret Pep 180 Impressions: Chest X-Ray 03/12/20 18:17 IMPRESSION: Worsening areas of consolidation in both lungs. Assessment and Plan - Diagnosis (1) Pneumonia due to COVID-19 virus Is this a current diagnosis for this admission?: Yes Plan: Tested positive for COVID-19 on 03/02/2020. Chest x-ray notable for bilateral pneumonia. Currently afebrile. Treating patient with ceftriaxone, azithromycin, zinc, vitamin C, vitamin D supplements. D-dimer is elevated so patient is on therapeutic dose Lovenox (2) Acute respiratory failure with hypoxia Is this a current diagnosis for this admission?: Yes Plan: Secondary to COVID-19. Currently requiring 5 L nasal cannula. Started on Decadron IV and Remdesivir. Incentive spirometer. Goal SPO2 >89%. Monitor closely. (3) Acute infective exacerbation of chronic obstructive airway disease Is this a current diagnosis for this admission?: Yes Plan: COPD exacerbation. Likely triggered by COVID pneumonia. Not much wheezing on my exam today. Will treat with albuterol inhalers. Continue his Trelegy. On Decadron. (4) Coronary artery disease Qualifiers: Coronary Disease-Associated Artery/Lesion type: [place] artery [place] vs. transplanted heart: [place] heart Associated angina: without angina Qualified Code(s): I25.10 - Atherosclerotic heart disease of [place] coronary artery without angina pectoris Is this a current diagnosis for this admission?: Yes Plan: Continue aspirin and metoprolol and statin (5) Hypertension Qualifiers: Hypertension type: essential hypertension Qualified Code(s): I10 - Essential (primary) hypertension Is this a current diagnosis for this admission?: Yes Plan: Continue home meds - Time Time Spent with patient: 15-24 minutes Anticipated Discharge Disposition: Home, Self Care Anticipated Discharge: Other - undetermined
[2020-03-13] MEDS ORDERED: AZITHROMYCIN 250 MG in DEXTROSE 5%-WATER 250 ML IV SCH (22:00)
[2020-03-13] MEDS ORDERED: AZITHROMYCIN 500 MG in DEXTROSE 5%-WATER 250 ML IV SCH (22:00)
[2020-03-13] MEDS: ATORVASTATIN CALCIUM 40 MG TABLET PO SCH (22:09)
[2020-03-13] MEDS: ALBUTEROL SULFATE HFA (90 MCG/PUFF) 200 PUFF/8.5 GM MDI IH SCH (22:10)
[2020-03-13] MEDS: CEFTRIAXONE 1 GM/D5W RTU 1 GM/50 ML RTUPB IV SCH (22:11)
[2020-03-13] MEDS: AZITHROMYCIN 250 MG in DEXTROSE 5%-WATER 250 ML IV SCH (23:44)
[2020-03-14] MEDS: IPRATROPIUM BROMIDE 0.02% NEB 0.5 MG/2.5 ML AMPUL NEB SCH ×3 (01:58→19:05)
[2020-03-14] MEDS: ALBUTEROL SULFATE HFA (90 MCG/PUFF) 200 PUFF/8.5 GM MDI IH SCH ×5 (05:10→23:49)
[2020-03-14] MEDS: DEXAMETHASONE SOD PHOSPHATE INJ 4 MG/1 ML VIAL IV SCH ×3 (05:13→22:42)
[2020-03-14 07:04] LABS: ANION GAP 6 (5-19); BLOOD UREA NITROGEN 27 mg/dL (7-20); C-REACTIVE PROTEIN 88.3 mg/L (<10.0); CALCIUM 9.3 mg/dL (8.4-10.2); CARBON DIOXIDE 21 mmol/L (22-30); CHLORIDE 110 mmol/L (98-107); GLUCOSE 136 mg/dL (75-110)
[2020-03-14] MEDS: RINGERS SOLUTION,LACTATED 1,000 ML IV PRN (08:00)
[2020-03-14] MEDS: CHOLECALCIFEROL (D3) 1,000 UNIT (25 MCG) TABLET PO SCH (10:01)
[2020-03-14] MEDS: ZINC SULFATE 220 MG CAPSULE PO SCH (10:01)
[2020-03-14] MEDS: GUAIFENESIN 600 MG TABLET.SA PO SCH ×2 (10:02→22:41)
[2020-03-14] MEDS: ENOXAPARIN SODIUM INJ 100 MG/1 ML DISP.SYRIN SUBCUT SCH ×2 (10:02→22:42)
[2020-03-14] MEDS: FAMOTIDINE 20 MG TABLET PO SCH ×2 (10:02→22:41)
[2020-03-14] MEDS: DOCUSATE SODIUM 100 MG CAPSULE PO SCH ×2 (10:02→18:41)
[2020-03-14] MEDS: ASPIRIN 81 MG TABLET, ENT COATED PO SCH (10:02)
[2020-03-14] MEDS: ASCORBIC ACID 500 MG TABLET PO SCH (10:02)
[2020-03-14] MEDS: METOPROLOL SUCCINATE 25 MG TAB.SR.24H PO SCH (10:04)
[2020-03-14] MEDS: FLUTICASONE/UMECLIDIN/VILANTER 100-62.5-25 MCG/DOSE IH SCH (10:05)
[2020-03-14] MEDS: REMDESIVIR (EUA) 100 MG in NORMAL SALINE 250 ML IV SCH (10:10)
--- NOTE | 2020-03-14 13:49 | PDOC PROGRESS REPORT ---
Subjective Progress Note for:: 03/14/20 Subjective:: Patient still feels a little short of breath this morning but not worse than yesterday. He denies any chest pain. Feels fatigued and still having poor appetite. Denies any diarrhea today. Reason For Visit: COVID-19 PNEUMONIA,ACUTE EXACERBATION OF CHRONIC Physical Exam Vital Signs: Temp Pulse Resp BP Pulse Ox 97.3 F 117 H 21 H 131/53 H 94 03/14/20 13:03 03/14/20 13:03 03/14/20 13:03 03/14/20 13:03 03/14/20 13:03 Intake & Output 03/13/20 03/14/20 03/15/20 06:59 06:59 06:59 Intake Total 1300 2060 1500 Output Total 300 Balance 1300 1760 1500 Weight 83 kg 73 kg General appearance: PRESENT: no acute distress, cooperative Neck exam: ABSENT: JVD Respiratory exam: PRESENT: crackles, symmetrical, unlabored. ABSENT: tachypnea, wheezes Cardiovascular exam: PRESENT: +S1, +S2, tachycardia. ABSENT: irregular rhythm GI/Abdominal exam: PRESENT: soft. ABSENT: rebound, rigid, tenderness Neurological exam: PRESENT: alert, awake, oriented to person, oriented to place, oriented to time Psychiatric exam: PRESENT: anxious. ABSENT: agitated Focused psych exam: ABSENT: pressured speech Skin exam: ABSENT: jaundice Results Laboratory Results: 03/13/20 06:57 03/14/20 05:24 03/14/20 05:24 Sodium 137.1 Potassium 5.0 Chloride 110 H Carbon Dioxide 21 L Anion Gap 6 BUN 27 H Creatinine 1.15 Est GFR ( Amer) > 60 Glucose 136 H Calcium 9.3 Magnesium 2.5 H Ferritin 1410.00 H C-Reactive Protein 88.3 H 03/12/20 17:40 Troponin I < 0.012 NT-Pro-B Natriuret Pep 180 Impressions: Chest X-Ray 03/12/20 18:17 IMPRESSION: Worsening areas of consolidation in both lungs. Assessment and Plan - Diagnosis (1) Pneumonia due to COVID-19 virus Is this a current diagnosis for this admission?: Yes Plan: Severe COVID Pneumonia Tested positive for COVID-19 on 03/02/2020. Chest x-ray notable for bilateral pneumonia. Currently afebrile. Treating patient with ceftriaxone, azithromycin, remdesivir, zinc, vitamin C, vitamin D supplements. D-dimer is elevated so patient is on therapeutic dose Lovenox Trend d-dimer Monitor CBC and electrolytes (2) Acute respiratory failure with hypoxia Is this a current diagnosis for this admission?: Yes Plan: Secondary to COVID-19. Continue IV Decadron and Remdesivir. documented the patient is on 7 L nasal cannula - I will try to wean down to 6 L nasal cannula. Incentive spirometer. Goal SPO2 >89%. Monitor closely. (3) Acute infective exacerbation of chronic obstructive airway disease Is this a current diagnosis for this admission?: Yes Plan: COPD exacerbation. Likely triggered by COVID pneumonia. Not wheezing on my exam today. Will continue to treat with albuterol inhalers. Continue his Trelegy. On Decadron. (4) Coronary artery disease Qualifiers: Coronary Disease-Associated Artery/Lesion type: [place] artery [place] vs. transplanted heart: [place] heart Associated angina: without angina Qualified Code(s): I25.10 - Atherosclerotic heart disease of [place] coronary artery without angina pectoris Is this a current diagnosis for this admission?: Yes Plan: Continue aspirin and metoprolol and statin (5) Hypertension Qualifiers: Hypertension type: essential hypertension Qualified Code(s): I10 - Essential (primary) hypertension Is this a current diagnosis for this admission?: Yes Plan: Continue home meds - Time Time Spent with patient: Less than 15 minutes Anticipated Discharge Disposition: Home, Self Care Anticipated Discharge: Other - Undetermined
[2020-03-14] MEDS: CEFTRIAXONE 1 GM/D5W RTU 1 GM/50 ML RTUPB IV SCH (22:41)
[2020-03-14] MEDS: ATORVASTATIN CALCIUM 40 MG TABLET PO SCH (22:41)
[2020-03-14] MEDS: MELATONIN 5 MG TABLET PO PRN (22:42)
[2020-03-14] MEDS: AZITHROMYCIN 250 MG in DEXTROSE 5%-WATER 250 ML IV SCH (23:42)
[2020-03-15] MEDS: IPRATROPIUM BROMIDE 0.02% NEB 0.5 MG/2.5 ML AMPUL NEB SCH ×3 (03:52→16:17)
[2020-03-15 05:48] LABS: HEMATOCRIT 39.5 % (37.9-51.0); HEMOGLOBIN 13.6 g/dL (13.5-17.0); MEAN CORPUSCULAR HEMOGLOBIN 32.8 pg (27.0-33.4); MEAN CORPUSCULAR HGB CONC 34.4 g/dL (32.0-36.0); MEAN CORPUSCULAR VOLUME 95 fl (80-97); PLATELET COUNT 332 10^3/uL (150-450); RED BLOOD COUNT 4.14 10^6/uL (4.35-5.55); RED CELL DISTRIBUTION WIDTH 13.9 % (11.5-14.0)
[2020-03-15 06:01] LABS: ANION GAP 5 (5-19); BLOOD UREA NITROGEN 26 mg/dL (7-20); C-REACTIVE PROTEIN 43.6 mg/L (<10.0); CALCIUM 9.2 mg/dL (8.4-10.2); CARBON DIOXIDE 21 mmol/L (22-30); CHLORIDE 110 mmol/L (98-107); GLUCOSE 128 mg/dL (75-110); POTASSIUM 4.8 mmol/L (3.6-5.0)
[2020-03-15] MEDS: DEXAMETHASONE SOD PHOSPHATE INJ 4 MG/1 ML VIAL IV SCH ×3 (06:10→22:19)
[2020-03-15] MEDS: ALBUTEROL SULFATE HFA (90 MCG/PUFF) 200 PUFF/8.5 GM MDI IH SCH ×2 (06:16→13:47)
[2020-03-15 06:29] LABS: ERYTHROCYTE SEDIMENTATION RATE 62 mm/hr (0-20)
[2020-03-15] MEDS: ASPIRIN 81 MG TABLET, ENT COATED PO SCH (09:23)
[2020-03-15] MEDS: ZINC SULFATE 220 MG CAPSULE PO SCH (09:23)
[2020-03-15] MEDS: METOPROLOL SUCCINATE 25 MG TAB.SR.24H PO SCH (09:23)
[2020-03-15] MEDS: DOCUSATE SODIUM 100 MG CAPSULE PO SCH ×2 (09:23→17:13)
[2020-03-15] MEDS: GUAIFENESIN 600 MG TABLET.SA PO SCH ×2 (09:23→22:18)
[2020-03-15] MEDS: CHOLECALCIFEROL (D3) 1,000 UNIT (25 MCG) TABLET PO SCH (09:23)
[2020-03-15] MEDS: FAMOTIDINE 20 MG TABLET PO SCH ×2 (09:23→22:18)
[2020-03-15] MEDS: ASCORBIC ACID 500 MG TABLET PO SCH (09:23)
[2020-03-15] MEDS: FLUTICASONE/UMECLIDIN/VILANTER 100-62.5-25 MCG/DOSE IH SCH (09:24)
[2020-03-15] MEDS: ENOXAPARIN SODIUM INJ 100 MG/1 ML DISP.SYRIN SUBCUT SCH ×2 (09:24→22:20)
[2020-03-15 10:39] LABS: APPEARANCE,URINE CLEAR; BILIRUBIN,URINE NEGATIVE (NEGATIVE); COLOR,URINE YELLOW; GLUCOSE, URINE NEGATIVE (NEGATIVE); KETONES,URINE NEGATIVE (NEGATIVE); LEUKOCYTE ESTERASE,URINE NEGATIVE (NEGATIVE); NITRITE,URINE NEGATIVE (NEGATIVE); PROTEIN,URINE NEGATIVE (NEGATIVE); URINE SPECIFIC GRAVITY 1.018; UROBILINOGEN,URINE NEGATIVE mg/dL (<2.0)
[2020-03-15] MEDS: REMDESIVIR (EUA) 100 MG in NORMAL SALINE 250 ML IV SCH (13:57)
--- NOTE | 2020-03-15 17:55 | PDOC PROGRESS REPORT ---
Subjective Progress Note for:: 03/15/20 Subjective:: Patient gets short of breath when he ambulates. Still quite fatigued. Reason For Visit: COVID-19 PNEUMONIA,ACUTE EXACERBATION OF CHRONIC Physical Exam Vital Signs: Temp Pulse Resp BP Pulse Ox 97.7 F 90 15 124/73 93 03/15/20 16:08 03/15/20 16:17 03/15/20 16:17 03/15/20 16:08 03/15/20 16:17 Intake & Output 03/14/20 03/15/20 03/16/20 06:59 06:59 06:59 Intake Total 2060 3627 360 Output Total 300 800 100 Balance 1760 2827 260 Weight 73 kg 72.9 kg Respiratory exam: ABSENT: tachypnea Cardiovascular exam: PRESENT: RRR. ABSENT: irregular rhythm, tachycardia Psychiatric exam: PRESENT: anxious Focused psych exam: ABSENT: pressured speech Results Laboratory Results: 03/15/20 05:22 03/15/20 05:22 03/15/20 03/15/20 03/15/20 05:22 05:22 10:15 WBC 11.0 H D RBC 4.14 L Hgb 13.6 Hct 39.5 MCV 95 MCH 32.8 MCHC 34.4 RDW 13.9 Plt Count 332 Sodium 135.8 L Potassium 4.8 Chloride 110 H Carbon Dioxide 21 L Anion Gap 5 BUN 26 H Creatinine 1.05 Est GFR ( Amer) > 60 Glucose 128 H Calcium 9.2 Magnesium 2.3 C-Reactive Protein 43.6 H Urine Color YELLOW Urine Appearance CLEAR Urine pH 6.0 Ur Specific [place] 1.018 Urine Protein NEGATIVE Urine Glucose (UA) NEGATIVE Urine Ketones NEGATIVE Urine Blood NEGATIVE Urine Nitrite NEGATIVE Ur Leukocyte Esterase NEGATIVE Urine WBC (Auto) 0 Urine RBC (Auto) 0 03/12/20 17:40 Blood Blood Culture (PCR) - Final 03/12/20 17:40 Troponin I < 0.012 NT-Pro-B Natriuret Pep 180 Impressions: Chest X-Ray 03/12/20 18:17 IMPRESSION: Worsening areas of consolidation in both lungs. Assessment and Plan - Diagnosis (1) Pneumonia due to COVID-19 virus Is this a current diagnosis for this admission?: Yes Plan: Severe COVID Pneumonia Tested positive for COVID-19 on 03/02/2020. Chest x-ray notable for bilateral pneumonia. Currently afebrile. Treating patient with ceftriaxone, azithromycin, remdesivir, zinc, vitamin C, vitamin D supplements. D-dimer is elevated so patient is on therapeutic dose Lovenox T d-dimer is trending down Monitor CBC and electrolytes (2) Acute respiratory failure with hypoxia Is this a current diagnosis for this admission?: Yes Plan: Secondary to COVID-19. Continue IV Decadron and Remdesivir. Noted to be on 3.5 L nasal cannula this morning. Was cranked up to 5 L after patient ambulated and got dyspneic. (3) Acute infective exacerbation of chronic obstructive airway disease Is this a current diagnosis for this admission?: Yes Plan: COPD exacerbation. Likely triggered by COVID pneumonia. Not wheezing on my exam today. Will continue to treat with albuterol inhalers. Continue his Trelegy. On Decadron. (4) Coronary artery disease Qualifiers: Coronary Disease-Associated Artery/Lesion type: [place] artery [place] vs. transplanted heart: [place] heart Associated angina: without angina Qualified Code(s): I25.10 - Atherosclerotic heart disease of [place] coronary artery without angina pectoris Is this a current diagnosis for this admission?: Yes Plan: Continue aspirin and metoprolol and statin (5) Hypertension Qualifiers: Hypertension type: essential hypertension Qualified Code(s): I10 - Essential (primary) hypertension Is this a current diagnosis for this admission?: Yes Plan: Continue home meds - Time Time Spent with patient: Less than 15 minutes Anticipated Discharge Disposition: Home, Self Care Anticipated Discharge Timeframe: undetermined
[2020-03-15] MEDS: MELATONIN 5 MG TABLET PO PRN (22:18)
[2020-03-15] MEDS: ATORVASTATIN CALCIUM 40 MG TABLET PO SCH (22:18)
[2020-03-15] MEDS: AZITHROMYCIN 250 MG in DEXTROSE 5%-WATER 250 ML IV SCH (22:18)
[2020-03-15] MEDS: CEFTRIAXONE 1 GM/D5W RTU 1 GM/50 ML RTUPB IV SCH (22:19)
[2020-03-16] MEDS: IPRATROPIUM BROMIDE 0.02% NEB 0.5 MG/2.5 ML AMPUL NEB SCH ×2 (01:03→09:44)
[2020-03-16] MEDS: DEXAMETHASONE SOD PHOSPHATE INJ 4 MG/1 ML VIAL IV SCH ×3 (05:46→21:43)
[2020-03-16] MEDS: ALBUTEROL SULFATE HFA (90 MCG/PUFF) 200 PUFF/8.5 GM MDI IH SCH ×3 (09:35→17:22)
[2020-03-16] MEDS: ASCORBIC ACID 500 MG TABLET PO SCH (09:58)
[2020-03-16] MEDS: METOPROLOL SUCCINATE 25 MG TAB.SR.24H PO SCH (09:58)
[2020-03-16] MEDS: FAMOTIDINE 20 MG TABLET PO SCH ×2 (09:58→21:42)
[2020-03-16] MEDS: DOCUSATE SODIUM 100 MG CAPSULE PO SCH ×2 (09:58→17:22)
[2020-03-16] MEDS: GUAIFENESIN 600 MG TABLET.SA PO SCH ×2 (09:58→21:42)
[2020-03-16] MEDS: ZINC SULFATE 220 MG CAPSULE PO SCH (09:58)
[2020-03-16] MEDS: ASPIRIN 81 MG TABLET, ENT COATED PO SCH (09:58)
[2020-03-16] MEDS: CHOLECALCIFEROL (D3) 1,000 UNIT (25 MCG) TABLET PO SCH (09:58)
[2020-03-16] MEDS: ENOXAPARIN SODIUM INJ 100 MG/1 ML DISP.SYRIN SUBCUT SCH ×2 (09:59→21:42)
[2020-03-16] MEDS: FLUTICASONE/UMECLIDIN/VILANTER 100-62.5-25 MCG/DOSE IH SCH (09:59)
--- NOTE | 2020-03-16 11:44 | PDOC PROGRESS REPORT ---
Subjective Progress Note for:: 03/16/20 Subjective:: Patient today states that he is feeling better in terms of his breathing. Still he gets short of breath when he ambulates. We are unable to wean his nasal cannula overnight. Denies fever or chills. Attempted to eat his diet and stay hydrated. Reason For Visit: COVID-19 PNEUMONIA,ACUTE EXACERBATION OF CHRONIC Physical Exam Vital Signs: Temp Pulse Resp BP Pulse Ox 97.7 F 91 17 131/69 H 89 L 03/16/20 07:26 03/16/20 07:26 03/16/20 07:26 03/16/20 07:26 03/16/20 07:26 Intake & Output 03/15/20 03/16/20 03/17/20 06:59 06:59 06:59 Intake Total 3627 1140 Output Total 800 1480 Balance 2827 -340 Weight 72.9 kg 71.5 kg General appearance: PRESENT: no acute distress, cooperative Neck exam: ABSENT: JVD Respiratory exam: PRESENT: crackles, unlabored. ABSENT: accessory muscle use, retraction, tachypnea, wheezes Cardiovascular exam: PRESENT: RRR, +S1, +S2. ABSENT: tachycardia GI/Abdominal exam: PRESENT: soft. ABSENT: rebound, rigid, tenderness Neurological exam: PRESENT: alert, awake, oriented to person, oriented to place, oriented to time, oriented to situation Results Laboratory Results: 03/15/20 05:22 03/15/20 05:22 03/16/20 05:17 C-Reactive Protein 26.8 H 03/12/20 17:40 Blood Blood Culture (PCR) - Final 03/12/20 17:40 Troponin I < 0.012 NT-Pro-B Natriuret Pep 180 Impressions: Chest X-Ray 03/12/20 18:17 IMPRESSION: Worsening areas of consolidation in both lungs. Assessment and Plan - Diagnosis (1) Pneumonia due to COVID-19 virus Is this a current diagnosis for this admission?: Yes Plan: Severe COVID Pneumonia Tested positive for COVID-19 on 03/02/2020. Chest x-ray notable for bilateral pneumonia. Currently afebrile. Treating patient with ceftriaxone, azithromycin day 4/5, remdesivir day 4/5, zinc, vitamin C, vitamin D supplements. D-dimer is elevated so patient is on therapeutic dose Lovenox Monitor d-dimer, CRP & ESR are trending down. Monitor CBC and electrolytes (2) Acute respiratory failure with hypoxia Is this a current diagnosis for this admission?: Yes Plan: Secondary to severe COVID-19 infection. Continue IV Decadron and Remdesivir. Still on 5 L nasal cannula. He could not tolerate weaning overnight. Will try again to wean today. I am okay if his SPO2 is 90-93%. We will continue to monitor closely. (3) Acute infective exacerbation of chronic obstructive airway disease Is this a current diagnosis for this admission?: Yes Plan: COPD exacerbation. Likely triggered by COVID pneumonia. Not wheezing on my exam today. Will continue to treat with albuterol inhalers. Continue his Trelegy. On Decadron. (4) Gram-negative bacteremia Is this a current diagnosis for this admission?: Yes Plan: Growing gram-negative rods in 1 blood culture bottle only. I question if this is a true bacteremia both being treated with ceftriaxone. Awaiting sensitivity and identification. (5) Coronary artery disease Qualifiers: Coronary Disease-Associated Artery/Lesion type: [place] artery [place] vs. transplanted heart: [place] heart Associated angina: without angina Qualified Code(s): I25.10 - Atherosclerotic heart disease of [place] coronary artery without angina pectoris Is this a current diagnosis for this admission?: Yes Plan: Continue aspirin and metoprolol and statin (6) Hypertension Qualifiers: Hypertension type: essential hypertension Qualified Code(s): I10 - Essential (primary) hypertension Is this a current diagnosis for this admission?: Yes Plan: Continue home meds - Time Time Spent with patient: Less than 15 minutes Anticipated Discharge Disposition: Home, Self Care Anticipated Discharge Timeframe: uncertain
[2020-03-16] MEDS: REMDESIVIR (EUA) 100 MG in NORMAL SALINE 250 ML IV SCH (13:47)
[2020-03-16] MEDS: ATORVASTATIN CALCIUM 40 MG TABLET PO SCH (21:42)
[2020-03-16] MEDS: MELATONIN 5 MG TABLET PO PRN (21:42)
[2020-03-16] MEDS: CEFTRIAXONE 1 GM/D5W RTU 1 GM/50 ML RTUPB IV SCH (21:43)
[2020-03-16] MEDS: AZITHROMYCIN 250 MG in DEXTROSE 5%-WATER 250 ML IV SCH (21:43)
[2020-03-17] MEDS: ALBUTEROL SULFATE HFA (90 MCG/PUFF) 200 PUFF/8.5 GM MDI IH SCH ×4 (00:35→17:52)
[2020-03-17] MEDS: DEXAMETHASONE SOD PHOSPHATE INJ 4 MG/1 ML VIAL IV SCH ×3 (05:26→22:05)
[2020-03-17 05:58] LABS: HEMATOCRIT 43.6 % (37.9-51.0); HEMOGLOBIN 14.9 g/dL (13.5-17.0); MEAN CORPUSCULAR HEMOGLOBIN 32.4 pg (27.0-33.4); MEAN CORPUSCULAR HGB CONC 34.3 g/dL (32.0-36.0); MEAN CORPUSCULAR VOLUME 95 fl (80-97); PLATELET COUNT 380 10^3/uL (150-450); RED CELL DISTRIBUTION WIDTH 13.6 % (11.5-14.0); WHITE BLOOD COUNT 12.3 10^3/uL (4.0-10.5)
[2020-03-17 07:53] LABS: ANION GAP 6 (5-19); BLOOD UREA NITROGEN 38 mg/dL (7-20); CALCIUM 9.1 mg/dL (8.4-10.2); CARBON DIOXIDE 26 mmol/L (22-30); CHLORIDE 104 mmol/L (98-107); GLUCOSE 134 mg/dL (75-110); POTASSIUM 5.2 mmol/L (3.6-5.0)
[2020-03-17] MEDS: FAMOTIDINE 20 MG TABLET PO SCH ×2 (09:00→22:07)
[2020-03-17] MEDS: ZINC SULFATE 220 MG CAPSULE PO SCH (09:00)
[2020-03-17] MEDS: CHOLECALCIFEROL (D3) 1,000 UNIT (25 MCG) TABLET PO SCH (09:00)
[2020-03-17] MEDS: ASCORBIC ACID 500 MG TABLET PO SCH (09:00)
[2020-03-17] MEDS: ENOXAPARIN SODIUM INJ 100 MG/1 ML DISP.SYRIN SUBCUT SCH ×2 (09:01→22:14)
[2020-03-17] MEDS: GUAIFENESIN 600 MG TABLET.SA PO SCH ×2 (09:01→22:06)
[2020-03-17] MEDS: FLUTICASONE/UMECLIDIN/VILANTER 100-62.5-25 MCG/DOSE IH SCH (09:01)
[2020-03-17] MEDS: METOPROLOL SUCCINATE 25 MG TAB.SR.24H PO SCH (09:01)
[2020-03-17] MEDS: DOCUSATE SODIUM 100 MG CAPSULE PO SCH ×2 (09:01→17:52)
[2020-03-17] MEDS: ASPIRIN 81 MG TABLET, ENT COATED PO SCH (09:01)
[2020-03-17] MEDS ORDERED: NORMAL SALINE 1000 ML 750 ML IV PRN (10:09)
[2020-03-17] MEDS ORDERED: METOPROLOL TARTRATE PF/INJ 5 MG/5 ML SDV IV PRN (12:34)
[2020-03-17] MEDS ORDERED: METOPROLOL TARTRATE PF/INJ 5 MG/5 ML SDV IV ONE (13:00)
[2020-03-17] MEDS ORDERED: METOPROLOL SUCCINATE 25 MG TAB.SR.24H PO ONE (13:00)
[2020-03-17] MEDS ORDERED: REMDESIVIR (EUA) 100 MG in NORMAL SALINE 250 ML IV ONE (15:00)
--- NOTE | 2020-03-17 16:18 | PDOC PROGRESS REPORT ---
Subjective Progress Note for:: 03/17/20 Subjective:: Patient was significantly tachycardic this morning. However at time of encounter this morning he was fully alert and oriented and in no apparent confusion. He denied any shortness of breath at rest but still notably gets short of breath when ambulating as reported by staff. He denied any diarrhea, nausea or vomiting. He states he has been eating adequately. Later this afternoon around 4 PM, I was notified by nursing staff that patient seemed confused this afternoon and was pulling out his IV and his nasal cannula. However he was complaining of anything. Noted to be moving his extremities well. Vitals at the time of the event were all stable and he is 95% on 4 L nasal cannula at the time.. Reason For Visit: COVID-19 PNEUMONIA,ACUTE EXACERBATION OF CHRONIC Physical Exam Vital Signs: Temp Pulse Resp BP Pulse Ox 97.4 F 143 H 16 126/74 H 91 L 03/17/20 13:06 03/17/20 13:06 03/17/20 13:06 03/17/20 13:06 03/17/20 13:06 Intake & Output 03/16/20 03/17/20 03/18/20 06:59 06:59 06:59 Intake Total 1390 1136 1000 Output Total 1480 400 Balance -90 736 1000 Weight 71.5 kg 72.2 kg General appearance: PRESENT: no acute distress, cooperative Neck exam: ABSENT: JVD Respiratory exam: PRESENT: clear to auscultation log[place], symmetrical, unlabored. ABSENT: tachypnea, wheezes Cardiovascular exam: PRESENT: +S1, +S2, tachycardia. ABSENT: irregular rhythm GI/Abdominal exam: PRESENT: soft. ABSENT: rebound, rigid, tenderness Neurological exam: PRESENT: alert, awake Psychiatric exam: ABSENT: agitated, anxious Focused psych exam: ABSENT: pressured speech Skin exam: ABSENT: jaundice Results Laboratory Results: 03/17/20 05:21 03/17/20 05:21 03/17/20 03/17/20 05:21 05:21 WBC 12.3 H RBC 4.60 Hgb 14.9 Hct 43.6 MCV 95 MCH 32.4 MCHC 34.3 RDW 13.6 Plt Count 380 Sodium 135.7 L Potassium 5.2 H Chloride 104 Carbon Dioxide 26 Anion Gap 6 BUN 38 H Creatinine 1.27 H Est GFR ( Amer) > 60 Glucose 134 H Calcium 9.1 Magnesium 2.4 H 03/12/20 17:40 Blood Blood Culture (PCR) - Final 03/12/20 17:40 Troponin I < 0.012 NT-Pro-B Natriuret Pep 180 Impressions: Chest X-Ray 03/12/20 18:17 IMPRESSION: Worsening areas of consolidation in both lungs. Assessment and Plan - Diagnosis (1) Pneumonia due to COVID-19 virus Is this a current diagnosis for this admission?: Yes Plan: Severe COVID Pneumonia Tested positive for COVID-19 on 03/02/2020. Chest x-ray notable for bilateral pneumonia. Currently afebrile. He has completed 5 days of azithromycin and 5 days of Remdesivir. Continue zinc, vitamin C, vitamin D supplements. D-dimer is elevated so patient is on therapeutic dose Lovenox Monitor d-dimer, CRP & ESR Monitor CBC and electrolytes. (2) Acute respiratory failure with hypoxia Is this a current diagnosis for this admission?: Yes Plan: Secondary to severe COVID-19 infection. Continue IV Decadron day 6. Completed 5 days of Remdesivir. Able to wean patient down to 4 L nasal cannula today with saturation in the low to mid 90s. I am okay if his SPO2 is 90-93%. We will continue to monitor closely on continuous pulse ox. (3) Sinus tachycardia Is this a current diagnosis for this admission?: Yes Plan: Noted to be tachycardic into the 140s this morning. EKG was obtained which showed sinus tachycardia with prolonged QTC. QTC prolongation is likely secondary to azithromycin which was completed yesterday night. We will monitor on telemetry. Administered 750 cc normal saline bolus. Also received some Lopressor. Most recent heart rate has normalized into the 80s. Will monitor closely. (4) Acute metabolic encephalopathy Is this a current diagnosis for this admission?: Yes Plan: His episode of encephalopathy this afternoon is unusual for him. Highly suspect this to be acute delirium given that he is elderly and has been in a closed room on isolation for the past few days and he is severely sick with COVID-19. We will use redirection strategies. We will keep the window blinds open. Vital signs at this time are all stable and hypoxia is unlikely to be playing a role here as he is on 4 L nc and satting 95% currently. We will try to avoid using restraints of pharmacotherapy except if needed if he starts becoming harmful to himself. Will check metabolic panel to reevaluate hyperkalemia and elevated creatinine, check accucheck. (5) Acute infective exacerbation of chronic obstructive airway disease Is this a current diagnosis for this admission?: Yes Plan: COPD exacerbation has resolved at this time. Will continue to treat with albuterol inhalers. Continue his Trelegy. (6) Gram-negative bacteremia Is this a current diagnosis for this admission?: Yes Plan: Growing gram-negative rods in 1 blood culture bottle only. I question if this is a true bacteremia both being treated with ceftriaxone. Awaiting sensitivity and identification. (7) Coronary artery disease Qualifiers: Coronary Disease-Associated Artery/Lesion type: [place] artery [place] vs. t ransplanted heart: [place] heart Associated angina: without angina Qualified Code(s): I25.10 - Atherosclerotic heart disease of [place] coronary artery without angina pectoris Is this a current diagnosis for this admission?: Yes Plan: Continue aspirin and metoprolol and statin (8) Hypertension Qualifiers: Hypertension type: essential hypertension Qualified Code(s): I10 - Essential (primary) hypertension Is this a current diagnosis for this admission?: Yes Plan: Continue home meds - Time Time Spent with patient: 15-24 minutes Anticipated Discharge Disposition: Home, Self Care Anticipated Discharge Timeframe: within 72 hours
[2020-03-17 18:01] LABS: ANION GAP 6 (5-19); BLOOD UREA NITROGEN 38 mg/dL (7-20); CALCIUM 9.2 mg/dL (8.4-10.2); CARBON DIOXIDE 23 mmol/L (22-30); CHLORIDE 105 mmol/L (98-107); GLUCOSE 129 mg/dL (75-110)
[2020-03-17 18:04] LABS: POTASSIUM 5.6 mmol/L (3.6-5.0)
[2020-03-17] MEDS ORDERED: PATIROMER 8.4 GM SUSP PACKET PO ONE (19:00)
[2020-03-17] MEDS ORDERED: FUROSEMIDE INJ/PF 20 MG/2 ML SDV IV ONE ×2 (19:00→22:00)
[2020-03-17] MEDS: CEFTRIAXONE 1 GM/D5W RTU 1 GM/50 ML RTUPB IV SCH (22:06)
[2020-03-17] MEDS: ATORVASTATIN CALCIUM 40 MG TABLET PO SCH (22:06)
--- NOTE | 2020-03-17 23:13 | EKG REPORT ---
SEVERITY:- ABNORMAL ECG - SUPRAVENTRICULAR TACHYCARDIA BORDERLINE PROLONGED QT INTERVAL : Confirmed by: Viri Sánchez MD 17-Mar-2020 23:12:55
[2020-03-18] MEDS: ALBUTEROL SULFATE HFA (90 MCG/PUFF) 200 PUFF/8.5 GM MDI IH SCH ×4 (00:23→17:10)
[2020-03-18] MEDS: DEXAMETHASONE SOD PHOSPHATE INJ 4 MG/1 ML VIAL IV SCH ×3 (06:00→21:37)
[2020-03-18 06:54] LABS: C-REACTIVE PROTEIN 14.4 mg/L (<10.0)
[2020-03-18 09:41] LABS: ANION GAP 8 (5-19); BLOOD UREA NITROGEN 40 mg/dL (7-20); CALCIUM 9.2 mg/dL (8.4-10.2); CARBON DIOXIDE 24 mmol/L (22-30); CHLORIDE 104 mmol/L (98-107); GLUCOSE 128 mg/dL (75-110); POTASSIUM 5.4 mmol/L (3.6-5.0)
[2020-03-18] MEDS: DOCUSATE SODIUM 100 MG CAPSULE PO SCH ×2 (09:48→17:10)
[2020-03-18] MEDS: METOPROLOL SUCCINATE 50 MG TAB.SR.24H PO SCH (09:48)
[2020-03-18] MEDS: ASPIRIN 81 MG TABLET, ENT COATED PO SCH (09:48)
[2020-03-18] MEDS: ZINC SULFATE 220 MG CAPSULE PO SCH (09:48)
[2020-03-18] MEDS: CHOLECALCIFEROL (D3) 1,000 UNIT (25 MCG) TABLET PO SCH (09:49)
[2020-03-18] MEDS: ASCORBIC ACID 500 MG TABLET PO SCH (09:49)
[2020-03-18] MEDS: ENOXAPARIN SODIUM INJ 100 MG/1 ML DISP.SYRIN SUBCUT SCH ×2 (09:49→21:38)
[2020-03-18] MEDS: GUAIFENESIN 600 MG TABLET.SA PO SCH (09:49)
[2020-03-18] MEDS: FLUTICASONE/UMECLIDIN/VILANTER 100-62.5-25 MCG/DOSE IH SCH (09:49)
[2020-03-18] MEDS: FAMOTIDINE 20 MG TABLET PO SCH ×2 (09:49→21:36)
[2020-03-18] MEDS ORDERED: METOPROLOL SUCCINATE 25 MG TAB.SR.24H PO SCH (10:00)
[2020-03-18] MEDS ORDERED: NORMAL SALINE 1000 ML 1,000 ML IV PRN (10:46)
--- NOTE | 2020-03-18 11:07 | PDOC PROGRESS REPORT ---
Subjective Progress Note for:: 03/18/20 Subjective:: Patient is doing better today. He has not had any recurrence of his delirium episode yesterday. His mental status is back to baseline. He is fully alert and oriented at this time. He states that he is breathing better. Denies any chest pain. Eating well. Reason For Visit: COVID-19 PNEUMONIA,ACUTE EXACERBATION OF CHRONIC Physical Exam Vital Signs: Temp Pulse Resp BP Pulse Ox 97.5 F 89 16 136/73 H 94 03/18/20 09:05 03/18/20 09:05 03/18/20 09:05 03/18/20 09:05 03/18/20 09:05 Intake & Output 03/17/20 03/18/20 03/19/20 06:59 06:59 06:59 Intake Total 1136 1620 Output Total 400 Balance 736 1620 Weight 72.2 kg 78.7 kg General appearance: PRESENT: no acute distress, cooperative Neck exam: ABSENT: JVD Respiratory exam: PRESENT: symmetrical, unlabored. ABSENT: accessory muscle use, retraction, tachypnea Cardiovascular exam: PRESENT: RRR. ABSENT: bradycardia, irregular rhythm, tachycardia GI/Abdominal exam: PRESENT: soft. ABSENT: distended, rebound, rigid, tenderness Neurological exam: PRESENT: alert, awake, oriented to person, oriented to place, oriented to time Psychiatric exam: ABSENT: agitated, anxious Focused psych exam: ABSENT: pressured speech Skin exam: PRESENT: other - Mildly flushed Results Laboratory Results: 03/17/20 05:21 03/18/20 05:38 03/17/20 03/18/20 03/18/20 17:28 05:38 05:38 Sodium 134.3 L 135.7 L Potassium 5.6 H 5.4 H Chloride 105 104 Carbon Dioxide 23 24 Anion Gap 6 8 BUN 38 H 40 H Creatinine 1.14 1.27 H Est GFR ( Amer) > 60 > 60 Glucose 129 H 128 H Calcium 9.2 9.2 Magnesium 2.5 H C-Reactive Protein 14.4 H 03/12/20 21:50 Blood Blood Culture - Final NO GROWTH IN 5 DAYS 03/12/20 17:40 Blood Blood Culture (PCR) - Final 03/12/20 03/17/20 17:40 17:28 Troponin I < 0.012 < 0.012 NT-Pro-B Natriuret Pep 180 Impressions: Chest X-Ray 03/12/20 18:17 IMPRESSION: Worsening areas of consolidation in both lungs. Assessment and Plan - Diagnosis (1) Pneumonia due to COVID-19 virus Is this a current diagnosis for this admission?: Yes Plan: Severe COVID Pneumonia Tested positive for COVID-19 on 03/02/2020. Chest x-ray notable for bilateral pneumonia. Currently afebrile. He has completed 5 days of azithromycin and 5 days of Remdesivir. Continue zinc, vitamin C, vitamin D supplements. D-dimer is elevated so patient is on therapeutic dose Lovenox Continue to trend d-dimer, CRP & ESR Monitor CBC and electrolytes. (2) Acute respiratory failure with hypoxia Is this a current diagnosis for this admission?: Yes Plan: Secondary to severe COVID-19 infection. Continue IV Decadron day 7. Completed 5 days of Remdesivir. SPO2 was adequate on 4 L. We will try to see if we can wean patient down over the next 24 hours to 2 L. I am okay if his SPO2 is 90-93 %. We will continue to monitor closely on continuous pulse ox. (3) Acute metabolic encephalopathy Is this a current diagnosis for this admission?: Yes Plan: Likely secondary to acute delirium given elderly age, acute severe sickness and being in a closed room on isolation for the past few days. Seems to have resolved at this time. We will continue reorientation techniques, keeping the windows open, and other supportive techniques to help prevent recurrence. (4) Acute infective exacerbation of chronic obstructive airway disease Is this a current diagnosis for this admission?: Yes Plan: COPD exacerbation has resolved at this time. Will continue to treat with albuterol inhalers. Continue his Trelegy. (5) Gram-negative bacteremia Is this a current diagnosis for this admission?: Yes Plan: Growing gram-negative rods in 1 blood culture bottle only. I question if this is a true bacteremia both being treated with ceftriaxone. Awaiting sensitivity and identification. Unfortunately, the lab is unable to identify the organisms at this time and states that they will have to send it out and may take 2 weeks. We will treat empirically with cephalosporin. Repeat blood cultures have been negative. (6) Coronary artery disease Qualifiers: Coronary Disease-Associated Artery/Lesion type: [place] artery [place] vs. transplanted heart: [place] heart Associated angina: without angina Qualified Code(s): I25.10 - Atherosclerotic heart disease of [place] coronary artery without angina pectoris Is this a current diagnosis for this admission?: Yes Plan: Continue aspirin and metoprolol and statin (7) Hyperkalemia Is this a current diagnosis for this admission?: Yes Plan: Patient hyperkalemia persists despite treatment with fluids, Lasix and Veltassa yesterday. I will give patient some IV fluids as his creatinine also has a mild bump indicating of some level of dehydration. I have reviewed patient's medications and only current meds that could cause this is Lovenox which is not typical either. However I strongly believe that his hyperkalemia was secondary to Remdesivir. I have done review of medical literature which indicates some instances of hyperkalemia secondary to this medication. We will continue to monitor BMP. (8) Hypertension Qualifiers: Hypertension type: essential hypertension Qualified Code(s): I10 - Essential (primary) hypertension Is this a current diagnosis for this admission?: Yes Plan: Continue home meds (9) Paroxysmal SVT (supraventricular tachycardia) Is this a current diagnosis for this admission?: Yes Plan: Patient's episode yesterday actually showed SVT on EKG. Resolved after receiving IV fluids and a small dose of Lopressor. Continue cardiac monitoring. - Time Time Spent with patient: Less than 15 minutes Anticipated Discharge Disposition: Home, Self Care Anticipated Discharge Timeframe: within 48 hours
[2020-03-18] MEDS: CEFTRIAXONE 1 GM/D5W RTU 1 GM/50 ML RTUPB IV SCH (21:35)
[2020-03-18] MEDS: MELATONIN 5 MG TABLET PO PRN (21:36)
[2020-03-18] MEDS: ATORVASTATIN CALCIUM 40 MG TABLET PO SCH (21:37)
[2020-03-19] MEDS: ALBUTEROL SULFATE HFA (90 MCG/PUFF) 200 PUFF/8.5 GM MDI IH SCH ×3 (00:08→12:16)
[2020-03-19] MEDS: DEXAMETHASONE SOD PHOSPHATE INJ 4 MG/1 ML VIAL IV SCH ×3 (06:04→21:53)
[2020-03-19 06:41] LABS: HEMATOCRIT 43.8 % (37.9-51.0); HEMOGLOBIN 14.8 g/dL (13.5-17.0); MEAN CORPUSCULAR HEMOGLOBIN 32.5 pg (27.0-33.4); MEAN CORPUSCULAR HGB CONC 33.8 g/dL (32.0-36.0); MEAN CORPUSCULAR VOLUME 96 fl (80-97); PLATELET COUNT 373 10^3/uL (150-450); RED BLOOD COUNT 4.55 10^6/uL (4.35-5.55); RED CELL DISTRIBUTION WIDTH 13.8 % (11.5-14.0)
[2020-03-19 07:04] LABS: ANION GAP 7 (5-19); BLOOD UREA NITROGEN 40 mg/dL (7-20); CALCIUM 8.6 mg/dL (8.4-10.2); CARBON DIOXIDE 21 mmol/L (22-30); CHLORIDE 109 mmol/L (98-107); GLUCOSE 134 mg/dL (75-110)
[2020-03-19 07:12] LABS: C-REACTIVE PROTEIN 10.5 mg/L (<10.0); POTASSIUM 4.6 mmol/L (3.6-5.0)
[2020-03-19 07:25] LABS: ERYTHROCYTE SEDIMENTATION RATE 18 mm/hr (0-20)
--- NOTE | 2020-03-19 09:01 | RADIOLOGY REPORT (SQ) ---
EXAM DESCRIPTION: CHEST SINGLE VIEW IMAGES COMPLETED DATE/TIME: 03/19/2020 7:26 am REASON FOR STUDY: persistent hypoxia. COVID pneumonia. reassessment COMPARISON: 03/12/2020. EXAM PARAMETERS: NUMBER OF VIEWS: One view. TECHNIQUE: Single frontal radiographic view of the chest acquired. RADIATION DOSE: NA LIMITATIONS: None. FINDINGS: LUNGS AND PLEURA: Scattered bilateral airspace disease, more prominent in the right mid misti ng and left lung base. Overall no significant change. No large pleural effusions. MEDIASTINUM AND HILAR STRUCTURES: No masses. Contour normal. HEART AND VASCULAR STRUCTURES: Heart normal in size. Normal vasculature. BONES: No acute findings. HARDWARE: None in the chest. OTHER: No other significant finding. IMPRESSION: NO SIGNIFICANT INTERVAL CHANGE. TECHNICAL DOCUMENTATION: JOB ID: [id number] 2010 [employer]- All Rights Reserved Reading location - IP/workstation name: [email or web address]
[2020-03-19] MEDS: DOCUSATE SODIUM 100 MG CAPSULE PO SCH ×2 (10:18→17:39)
[2020-03-19] MEDS: CHOLECALCIFEROL (D3) 1,000 UNIT (25 MCG) TABLET PO SCH (10:18)
[2020-03-19] MEDS: FAMOTIDINE 20 MG TABLET PO SCH ×2 (10:18→21:53)
[2020-03-19] MEDS: ZINC SULFATE 220 MG CAPSULE PO SCH (10:18)
[2020-03-19] MEDS: ASPIRIN 81 MG TABLET, ENT COATED PO SCH (10:18)
[2020-03-19] MEDS: ENOXAPARIN SODIUM INJ 100 MG/1 ML DISP.SYRIN SUBCUT SCH ×2 (10:18→21:53)
[2020-03-19] MEDS: METOPROLOL SUCCINATE 50 MG TAB.SR.24H PO SCH (10:18)
[2020-03-19] MEDS: ASCORBIC ACID 500 MG TABLET PO SCH (10:18)
[2020-03-19] MEDS: FLUTICASONE/UMECLIDIN/VILANTER 100-62.5-25 MCG/DOSE IH SCH (10:19)
--- NOTE | 2020-03-19 13:47 | PDOC PROGRESS REPORT ---
Subjective Progress Note for:: 03/19/20 Subjective:: Patient's has no complaints today. He states he is breathing well. He is eating his meals comfortably. Does not appear confused today. Reason For Visit: COVID-19 PNEUMONIA,ACUTE EXACERBATION OF CHRONIC Physical Exam Vital Signs: Temp Pulse Resp BP Pulse Ox 98.1 F 85 24 H 104/57 L 93 03/19/20 10:00 03/19/20 10:00 03/19/20 10:00 03/19/20 10:00 03/19/20 10:00 Intake & Output 03/18/20 03/19/20 03/20/20 06:59 06:59 06:59 Intake Total 2021 086 5181 Output Total 1450 Balance 1620 -988 1050 Weight 78.7 kg 79.9 kg General appearance: PRESENT: no acute distress, cooperative Neck exam: ABSENT: JVD Respiratory exam: PRESENT: unlabored. ABSENT: accessory muscle use, retraction, tachypnea Cardiovascular exam: PRESENT: RRR. ABSENT: tachycardia GI/Abdominal exam: ABSENT: distended Neurological exam: PRESENT: alert, awake, oriented to person, oriented to place, other - Does not appear confused. Fully conversational and appropriately so Psychiatric exam: ABSENT: agitated, anxious Focused psych exam: ABSENT: pressured speech Skin exam: ABSENT: jaundice Additional comments: Physical exam done with the aid of tele Results Laboratory Results: 03/19/20 06:25 03/19/20 06:25 03/19/20 03/19/20 06:25 06:25 WBC 13.0 H RBC 4.55 Hgb 14.8 Hct 43.8 MCV 96 MCH 32.5 MCHC 33.8 RDW 13.8 Plt Count 373 Sodium 137.2 Potassium 4.6 Chloride 109 H Carbon Dioxide 21 L Anion Gap 7 BUN 40 H Creatinine 1.26 H Est GFR ( Amer) > 60 Glucose 134 H Calcium 8.6 C-Reactive Protein 10.5 H 03/12/20 21:50 Blood Blood Culture - Final NO GROWTH IN 5 DAYS 03/12/20 17:40 Blood Blood Culture (PCR) - Final 03/12/20 17:40 Blood Blood Culture - Final Morax.(Branhamella)Catarrhalis Citrobacter Amalonaticus 03/12/20 03/17/20 17:40 17:28 Troponin I < 0.012 < 0.012 NT-Pro-B Natriuret Pep 180 Impressions: Chest X-Ray 03/19/20 06:00 IMPRESSION: NO SIGNIFICANT INTERVAL CHANGE. Assessment and Plan - Diagnosis (1) Pneumonia due to COVID-19 virus Is this a current diagnosis for this admission?: Yes Plan: Severe COVID Pneumonia Tested positive for COVID-19 on 03/02/2020. Chest x-ray notable for bilateral pneumonia. Currently afebrile. He has completed 5 days of azithromycin and 5 days of Remdesivir. Continue zinc, vitamin C, vitamin D supplements. D-dimer is elevated so patient is on therapeutic dose Lovenox Continue to trend d-dimer, CRP & ESR Monitor CBC and electrolytes. (2) Acute respiratory failure with hypoxia Is this a current diagnosis for this admission?: Yes Plan: Secondary to severe COVID-19 infection. Continue IV Decadron day 7. Completed 5 days of Remdesivir. SPO2 was adequate on 4 L. We will try to see if we can wean patient down over the next 24 hours to 2 L. I am okay if his SPO2 is 90- 93%. We will continue to monitor closely on continuous pulse ox. Chest x-ray today shows no significant interval change. (3) Acute metabolic encephalopathy Is this a current diagnosis for this admission?: Yes Plan: Likely secondary to acute delirium given elderly age, acute severe sickness and being in a closed room on isolation for the past few days. Currently resolved. Continue supportive techniques and reorientation tech niques. Keep window blinds open. (4) Acute infective exacerbation of chronic obstructive airway disease Is this a current diagnosis for this admission?: Yes Plan: COPD exacerbation has resolved at this time. Albuterol as needed. Continue Trelegy. (5) Gram-negative bacteremia Is this a current diagnosis for this admission?: Yes Plan: Blood culture growing 2 different gram-negative rods in 1 blood culture bottle only. I question if this is a true bacteremia but being treated with ceftriaxone nonetheless. Identification is come back as Moraxella and Citrobacter both sensitive to ceftriaxone. Today will complete day 88 of treatment for bacteremia. Repeat blood cultures have been negative so far. (6) Coronary artery disease Qualifiers: Coronary Disease-Associated Artery/Lesion type: [place] artery [place] vs. transplanted heart: [place] heart Associated angina: without angina Qualified Code(s): I25.10 - Atherosclerotic heart disease of [place] coronary artery without angina pectoris Is this a current diagnosis for this admission?: Yes Plan: Continue aspirin and metoprolol and statin (7) Hyperkalemia Is this a current diagnosis for this admission?: Yes Plan: I strongly believe that his hyperkalemia was secondary to Remdesivir. I have done review of medical literature which indicates some instances of hyperkalemia secondary to this medication. However BMP today shows normalization of pota ssium level. Will monitor. (8) Hypertension Qualifiers: Hypertension type: essential hypertension Qualified Code(s): I10 - Essen tial (primary) hypertension Is this a current diagnosis for this admission?: Yes Plan: Continue home meds (9) Paroxysmal SVT (supraventricular tachycardia) Is this a current diagnosis for this admission?: Yes Plan: Resolved at this point. Continue beta-lyndon. Follow-up outpatient with cardiology. - Time Time Spent with patient: Less than 15 minutes Anticipated Discharge Disposition: Home, Self Care Anticipated Discharge Timeframe: within 48 hours
[2020-03-19] MEDS: CEFTRIAXONE 1 GM/D5W RTU 1 GM/50 ML RTUPB IV SCH (21:52)
[2020-03-19] MEDS: MELATONIN 5 MG TABLET PO PRN (21:53)
[2020-03-19] MEDS: ATORVASTATIN CALCIUM 40 MG TABLET PO SCH (21:53)
[2020-03-20] MEDS: DEXAMETHASONE SOD PHOSPHATE INJ 4 MG/1 ML VIAL IV SCH ×3 (05:44→21:27)
[2020-03-20] MEDS: ENOXAPARIN SODIUM INJ 80 MG/0.8 ML DISP.SYRIN SUBCUT SCH ×2 (10:29→21:26)
[2020-03-20] MEDS: ASCORBIC ACID 500 MG TABLET PO SCH (10:30)
[2020-03-20] MEDS: ASPIRIN 81 MG TABLET, ENT COATED PO SCH (10:30)
[2020-03-20] MEDS: CHOLECALCIFEROL (D3) 1,000 UNIT (25 MCG) TABLET PO SCH (10:30)
[2020-03-20] MEDS: ZINC SULFATE 220 MG CAPSULE PO SCH (10:30)
[2020-03-20] MEDS: METOPROLOL SUCCINATE 50 MG TAB.SR.24H PO SCH (10:30)
[2020-03-20] MEDS: DOCUSATE SODIUM 100 MG CAPSULE PO SCH ×2 (10:30→18:30)
[2020-03-20] MEDS: FLUTICASONE/UMECLIDIN/VILANTER 100-62.5-25 MCG/DOSE IH SCH (10:31)
[2020-03-20] MEDS: FAMOTIDINE 20 MG TABLET PO SCH ×2 (10:31→21:32)
--- NOTE | 2020-03-20 11:07 | PDOC PROGRESS REPORT ---
Subjective Progress Note for:: 03/20/20 Subjective:: No issues today. Patient feels well. Reason For Visit: COVID-19 PNEUMONIA,ACUTE EXACERBATION OF CHRONIC Physical Exam Vital Signs: Temp Pulse Resp BP Pulse Ox 97.3 F 72 20 130/66 H 93 03/20/20 02:54 03/20/20 07:00 03/20/20 08:00 03/20/20 02:54 03/20/20 08:00 Intake & Output 03/19/20 03/20/20 03/21/20 06:59 06:59 06:59 Intake Total 462 1337 Output Total 1450 450 Balance -988 887 Weight 79.9 kg 79.2 kg General appearance: PRESENT: cooperative Cardiovascular exam: PRESENT: RRR. ABSENT: tachycardia Neurological exam: PRESENT: alert, awake Focused psych exam: ABSENT: pressured speech Additional comments: Physical exam done today with the aid of telecom. Results Laboratory Results: 03/19/20 06:25 03/19/20 06:25 03/12/20 03/17/20 17:40 17:28 Troponin I < 0.012 < 0.012 NT-Pro-B Natriuret Pep 180 Impressions: Chest X-Ray 03/19/20 06:00 IMPRESSION: NO SIGNIFICANT INTERVAL CHANGE. Assessment and Plan - Diagnosis (1) Pneumonia due to COVID-19 virus Is this a current diagnosis for this admission?: Yes Plan: Presented with severe COVID Pneumonia but currently doing well. Tested positive for COVID-19 on 03/02/2020. Chest x-ray notable for bilateral pneumonia. Currently afebrile. He has completed 5 days of azithromycin and 5 days of Remdesivir. Dexamethasone day 04/27 given hypoxia. On zinc, vitamin C, vitamin D supplements. D-dimer is elevated so patient is on therapeutic dose Lovenox Trending d-dimer, CRP & ESR are pretty much normal at this point. Monitor CBC and electrolytes. (2) Acute respiratory failure with hypoxia Is this a current diagnosis for this admission?: Yes Plan: Secondary to severe COVID-19 infection. Today patient is down to 3.5 L nasal cannula. This is the limiting factor currently for patient's discharge. If patient is able to be weaned down to 2 L nasal cannula today and stay on 2 L for most of today, patient can be discharged tomorrow with home oxygen. (3) Acute metabolic encephalopathy Is this a current diagnosis for this admission?: Yes Plan: 2/2 acute delirium given elderly age, acute severe sickness and being in a closed room on isolation for the past few days. Remains resolved. Continue supportive techniques and reorientation techniques. Keep window blinds open. (4) Acute infective exacerbation of chronic obstructive airway disease Is this a current diagnosis for this admission?: Yes Plan: COPD exacerbation has resolved at this time. Albuterol as needed. Continue Trelegy. Of note, patient is not on home oxygen and SPO2 on last ER visit was normal on room air. (5) Gram-negative bacteremia Is this a current diagnosis for this admission?: Yes Plan: Blood culture growing 2 different gram-negative rods in 1 blood culture bottle only. I question if this is a true bacteremia but being treated with ceftriaxone nonetheless. Identification came back as Moraxella and Citrobacter both sensitive to ceftriaxone. Patient has completed 8 days of ceftriaxone. Repeat blood cultures have been negative. I do not think he needs any more antibiotics. (6) Coronary artery disease Qualifiers: Coronary Disease-Associated Artery/Lesion type: [place] artery [place] vs. transplanted heart: [place] heart Associated angina: without angina Qualified Code(s): I25.10 - Atherosclerotic heart disease of [place] coronary artery without angina pectoris Is this a current diagnosis for this admission?: Yes Plan: Continue aspirin and metoprolol and statin (7) Hyperkalemia Is this a current diagnosis for this admission?: Yes Plan: Currently resolved. I strongly believe that his hyperkalemia was secondary to Remdesivir. I have done review of medical literature which indicates some instances of hyperkalemia secondary to this medication. We will check BMP again in the morning. (8) Hypertension Qualifiers: Hypertension type: essential hypertension Qualified Code(s): I10 - Essential (primary) hypertension Is this a current diagnosis for this admission?: Yes Plan: Continue home meds (9) Paroxysmal SVT (supraventricular tachycardia) Is this a current diagnosis for this admission?: Yes Plan: Resolved at this point. Continue beta-lyndon. Follow-up outpatient with cardiology. - Time Time Spent with patient: Less than 15 minutes Anticipated Discharge Disposition: Home, Self Care Anticipated Discharge Timeframe: within 24 hours
[2020-03-20] MEDS: MELATONIN 5 MG TABLET PO PRN (21:27)
[2020-03-20] MEDS: ATORVASTATIN CALCIUM 40 MG TABLET PO SCH (21:27)
[2020-03-21] MEDS: DEXAMETHASONE SOD PHOSPHATE INJ 4 MG/1 ML VIAL IV SCH ×2 (05:10→13:29)
[2020-03-21 07:04] LABS: HEMATOCRIT 41.5 % (37.9-51.0); HEMOGLOBIN 14.1 g/dL (13.5-17.0); MEAN CORPUSCULAR HEMOGLOBIN 32.7 pg (27.0-33.4); MEAN CORPUSCULAR HGB CONC 33.9 g/dL (32.0-36.0); MEAN CORPUSCULAR VOLUME 96 fl (80-97); PLATELET COUNT 282 10^3/uL (150-450); RED BLOOD COUNT 4.31 10^6/uL (4.35-5.55); RED CELL DISTRIBUTION WIDTH 13.6 % (11.5-14.0); WHITE BLOOD COUNT 9.8 10^3/uL (4.0-10.5)
[2020-03-21 07:30] LABS: ANION GAP 5 (5-19); BLOOD UREA NITROGEN 41 mg/dL (7-20); CALCIUM 8.5 mg/dL (8.4-10.2); CARBON DIOXIDE 22 mmol/L (22-30); CHLORIDE 108 mmol/L (98-107); GLUCOSE 116 mg/dL (75-110)
[2020-03-21 07:34] LABS: POTASSIUM 4.9 mmol/L (3.6-5.0)
[2020-03-21] MEDS: ZINC SULFATE 220 MG CAPSULE PO SCH (09:09)
[2020-03-21] MEDS: CHOLECALCIFEROL (D3) 1,000 UNIT (25 MCG) TABLET PO SCH (09:09)
[2020-03-21] MEDS: DOCUSATE SODIUM 100 MG CAPSULE PO SCH ×2 (09:09→17:31)
[2020-03-21] MEDS: FAMOTIDINE 20 MG TABLET PO SCH (09:10)
[2020-03-21] MEDS: ENOXAPARIN SODIUM INJ 80 MG/0.8 ML DISP.SYRIN SUBCUT SCH (09:10)
[2020-03-21] MEDS: ASCORBIC ACID 500 MG TABLET PO SCH (09:10)
[2020-03-21] MEDS: ASPIRIN 81 MG TABLET, ENT COATED PO SCH (09:10)
[2020-03-21] MEDS: METOPROLOL SUCCINATE 50 MG TAB.SR.24H PO SCH (09:10)
[2020-03-21] MEDS: FLUTICASONE/UMECLIDIN/VILANTER 100-62.5-25 MCG/DOSE IH SCH (09:12)
--- NOTE | 2020-03-21 15:54 | PDOC DISCHARGE SUMMARY ---
Impression - Admit/DC Date/PCP Admission Date/Primary Care Provider: 03/12/20 20:18 LEONIDAS HAN MD Discharge Date: 03/21/20 - Discharge Diagnosis (1) Pneumonia due to COVID-19 virus Is this a current diagnosis for this admission?: Yes (2) Acute respiratory failure with hypoxia Is this a current diagnosis for this admission?: Yes (3) Acute metabolic encephalopathy Is this a current diagnosis for this admission?: Yes (4) Acute infective exacerbation of chronic obstructive airway disease Is this a current diagnosis for this admission?: Yes (5) Coronary artery disease Is this a current diagnosis for this admission?: Yes (6) Gram-negative bacteremia Is this a current diagnosis for this admission?: Yes (7) Hyperkalemia Is this a current diagnosis for this admission?: Yes (8) Hypertension Is this a current diagnosis for this admission?: Yes (9) Paroxysmal SVT (supraventricular tachycardia) Is this a current diagnosis for this admission?: Yes - Additional Information Resuscitation Status: Full Code Discharge Diet: Cardiac Discharge Activity: Activity As Tolerated Referrals: LEONIDAS HAN MD [Primary Care Provider] - Follow up as needed Prescriptions: Prednisone [Deltasone 10 mg Tablet] 10 mg PO ASDIR PRN #21 tablet PRN Reason: Prednisone 10 mg PO ASDIR #1 tab.ds.pk Albuterol Sulfate [Proair HFA Inhalation Aerosol 8.5 gm MDI] 2 puff IH Q6HP PRN #1 hfa.aer.ad PRN Reason: Home Medications: Metoprolol Succinate 25 mg PO DAILY 05/04/14 Atorvastatin Calcium [Lipitor 40 mg Tablet] 40 mg PO QHS 05/15/17 Aspirin [Ecotrin 81 mg EC Tablet] 81 mg PO DAILY 03/13/20 Fluticasone/Umeclidin/Vilanter [Trelegy 100-62.5-25 Mcg Ellipta 14 Dose/Dpi] 1 each IH DAILY 03/13/20 Nitroglycerin [Nitrostat 0.4 mg (1/150 Gr) Tabs 25/Bottle] 1 tab SL Q5MP PRN 03/13/20 Albuterol Sulfate [Proair HFA Inhalation Aerosol 8.5 gm MDI] 2 puff IH Q6HP PRN #1 hfa.aer.ad 03/21/20 Ascorbic Acid [Vitamin C 500 mg Tablet] 2,000 mg PO DAILY tablet 03/21/20 Cholecalciferol (Vitamin D3) [Vitamin D3 1000 Unit Tablet] 2,000 unit PO DAILY tablet 03/21/20 Docusate Sodium [Colace 100 mg Capsule] 100 mg PO BID capsule 03/21/20 Guaifenesin [Robitussin Syrup 200 mg/10 ml Ud Cup] 200 mg PO Q4HP PRN udc 03/21/20 Melatonin [Melatonin 5 mg Tablet] 10 mg PO QHS PRN tablet 03/21/20 Prednisone [Deltasone 10 mg Tablet] 10 mg PO ASDIR PRN #21 tablet 03/21/20 Zinc Sulfate [Zinc-220 Capsule] 220 mg PO DAILY capsule 03/21/20 Prednisone 10 mg PO ASDIR #1 tab.ds.pk 03/22/20 History of Present Illiness History of Present Illness: DAKOTAH LOCKHART is a 84 year old male who presented the emergency room with a two-week history of dyspnea. Patient admits progressively worsening dyspnea over the course of the last 2 weeks becoming severe today. His dyspnea has been accompanied by a nonproductive cough and associated with a persistent subjective fever. His dyspnea is worsened by activity and exertion. He tested positive for COVID-19 on 03/05/2020 and was being treated conservatively at home by his primary care provider. He denies other associated or accompanying signs and symptoms. He admits prior similar episodes related to his COPD. He has not identified any additional aggravating or ameliorating factors for his dyspnea. In the emergency room he was found to be hypoxic requiring supplemental oxygen to maintain an adequate O2 saturation. Chest x-ray showed bilateral pneumonia. Patient was subsequently admitted to the hospital for further evaluation and treatment on the COVID-19 unit. Hospital Course Hospital Course: (1) Pneumonia due to COVID-19 virus Is this a current diagnosis for this admission?: Yes Plan: Presented with severe COVID Pneumonia but currently doing well. Tested positive for COVID-19 on 03/02/2020. Chest x-ray notable for bilateral pneumonia. Currently afebrile. He has completed 5 days of azithromycin and 5 days of Remdesivir. Dexamethasone day 910 given hypoxia. On zinc, vitamin C, vitamin D supplements. D-dimer is elevated so patient is on therapeutic dose Lovenox Trending d-dimer, CRP & ESR are pretty much normal at this point. Monitor CBC and electrolytes. (2) Acute respiratory failure with hypoxia Is this a current diagnosis for this admission?: Yes Plan: Secondary to severe COVID-19 infection. Today patient is down to 3.5 L nasal cannula. This is the limiting factor currently for patient's discharge. If patient is able to be weaned down to 2 L nasal cannula today and stay on 2 L for most of today, patient can be discharged tomorrow with home oxygen. (3) Acute metabolic encephalopathy Is this a current diagnosis for this admission?: Yes Plan: 2/2 acute delirium given elderly age, acute severe sickness and being in a closed room on isolation for the past few days. Remains resolved. Continue supportive techniques and reorientation techniques. Keep window blinds open. (4) Acute infective exacerbation of chronic obstructive airway disease Is this a current diagnosis for this admission?: Yes Plan: COPD exacerbation has resolved at this time. Albuterol as needed. Continue Trelegy. Of note, patient is not on home oxygen and SPO2 on last ER visit was normal on room air. (5) Gram-negative bacteremia Is this a current diagnosis for this admission?: Yes Plan: Blood culture growing 2 different gram-negative rods in 1 blood culture bottle only. I question if this is a true bacteremia but being treated with ceftriaxone nonetheless. Identification came back as Moraxella and Citrobacter both sensitive to ceftriaxone. Patient has completed 8 days of ceftriaxone. Repeat blood cultures have been negative. I do not think he needs any more antibiotics. (6) Coronary artery disease Qualifiers: Coronary Disease-Associated Artery/Lesion type: [place] artery [place] vs. transplanted heart: [place] heart Associated angina: without angina Qualified Code(s): I25.10 - Atherosclerotic heart disease of [place] coronary artery without angina pectoris Is this a current diagnosis for this admission?: Yes Plan: Continue aspirin and metoprolol and statin (7) Hyperkalemia Is this a current diagnosis for this admission?: Yes Plan: Currently resolved. I strongly believe that his hyperkalemia was secondary to Remdesivir. I have done review of medical literature which indicates some instances of hyperkalemia secondary to this medication. We will check BMP again in the morning. (8) Hypertension Qualifiers: Hypertension type: essential hypertension Qualified Code(s): I10 - Essential (primary) hypertension Is this a current diagnosis for this admission?: Yes Plan: Continue home meds (9) Paroxysmal SVT (supraventricular tachycardia) Is this a current diagnosis for this admission?: Yes Plan: Resolved at this point. Continue beta-lyndon. Follow-up outpatient with cardiology. Physical Exam Vital Signs: Temp Pulse Resp BP Pulse Ox 97.4 F 75 21 H 119/55 L 86 L 03/21/20 15:50 03/21/20 15:50 03/21/20 15:50 03/21/20 15:50 03/21/20 15:50 Intake & Output 03/20/20 03/21/20 03/22/20 06:59 06:59 06:59 Intake Total 1337 475 325 Output Total 450 1150 725 Balance 626 -954 -400 Weight 79.2 kg 79.2 kg 79.2 kg General appearance: PRESENT: no acute distress, cooperative, well-developed Respiratory exam: PRESENT: clear to auscultation [place], symmetrical, unlabored. ABSENT: rales, rhonchi, tachypnea, wheezes Cardiovascular exam: PRESENT: RRR, +S1, +S2. ABSENT: bradycardia, diastolic murmur, irregular rhythm, systolic murmur, tachycardia GI/Abdominal exam: PRESENT: normal bowel sounds, soft. ABSENT: tenderness Neurological exam: PRESENT: alert, awake, oriented to person, oriented to place, oriented to time, oriented to situation, CN II-XII grossly intact, motor sensory deficit. ABSENT: altered Results Laboratory Results: WBC 9.8 10^3/uL (4.0-10.5) 03/21/20 06:46 RBC 4.31 10^6/uL (4.35-5.55) L 03/21/20 06:46 Hgb 14.1 g/dL (13.5-17.0) 03/21/20 06:46 Hct 41.5 % (37.9-51.0) 03/21/20 06:46 MCV 96 fl (80-97) 03/21/20 06:46 MCH 32.7 pg (27.0-33.4) 03/21/20 06:46 MCHC 33.9 g/dL (32.0-36.0) 03/21/20 06:46 RDW 13.6 % (11.5-14.0) 03/21/20 06:46 Plt Count 282 10^3/uL (150-450) 03/21/20 06:46 Lymph % (Auto) 6.8 % (13-45) L 03/12/20 17:40 [place]on % (Auto) 10.6 % (3-13) 03/12/20 17:40 Eos % (Auto) 1.5 % (0-6) 03/12/20 17:40 Baso % (Auto) 0.2 % (0-2) 03/12/20 17:40 Absolute Neuts (auto) 6.9 10^3/uL (1.7-8.2) 03/12/20 17:40 Absolute Lymphs (auto) 0.6 10^3/uL (0.5-4.7) 03/12/20 17:40 Absolute Monos (auto) 0.9 10^3/uL (0.1-1.4) 03/12/20 17:40 Absolute Eos (auto) 0.1 10^3/uL (0.0-0.6) 03/12/20 17:40 Absolute Basos (auto) 0.0 10^3/uL (0.0-0.2) 03/12/20 17:40 Seg Neutrophils % 80.9 % (42-78) H 03/12/20 17:40 ESR 18 mm/hr (0-20) 03/19/20 06:25 PT 14.5 SEC (11.4-15.4) 03/12/20 17:40 INR 1.12 03/12/20 17:40 APTT 33.3 SEC (23.5-35.8) 03/12/20 17:40 Fibrinogen 865 mg/dL (209-497) H 03/12/20 17:40 D-Dimer 1.10 ug/mL (0.00-0.50) H 03/21/20 06:46 VBG pH 7.34 (7.30-7.42) 03/13/20 06:57 VBG pCO2 40.0 mmHg (35-63) 03/13/20 06:57 VBG HCO3 21.1 mmol/L (20-32) 03/13/20 06:57 VBG Base Excess -4.2 mmol/L 03/13/20 06:57 Sodium 134.7 mmol/L (137-145) L 03/21/20 06:46 Potassium 4.9 mmol/L (3.6-5.0) 03/21/20 06:46 Chloride 108 mmol/L (98-107) H 03/21/20 06:46 Carbon Dioxide 22 mmol/L (22-30) 03/21/20 06:46 Anion Gap 5 (5-19) 03/21/20 06:46 BUN 41 mg/dL (7-20) H 03/21/20 06:46 Creatinine 1.18 mg/dL (0.52-1.25) 03/21/20 06:46 Est GFR ( Amer) > 60 (>60) 03/21/20 06:46 Est GFR (MDRD) Non-Af 59 (>60) L 03/21/20 06:46 Glucose 116 mg/dL (75-110) H 03/21/20 06:46 POC Glucose 121 mg/dL (70-110) H 03/17/20 16:33 Calcium 8.5 mg/dL (8.4-10.2) 03/21/20 06:46 Magnesium 2.7 mg/dL (1.6-2.3) H 03/21/20 06:46 Ferritin 1410.00 ng/mL (17.9-464.0) H 03/14/20 05:24 Total Bilirubin 1.0 mg/dL (0.2-1.3) 03/12/20 17:40 Direct Bilirubin 0.2 mg/dL (0.0-0.4) 03/12/20 17:40 Neonat Total Bilirubin Not Reportable 03/12/20 17:40 Neonat Direct Bilirubin Not Reportable 03/12/20 17:40 Neonat Indirect Bili Not Reportable 03/12/20 17:40 AST 53 U/L (17-59) 03/12/20 17:40 ALT 49 U/L (<50) 03/12/20 17:40 Alkaline Phosphatase 104 U/L (38-126) 03/12/20 17:40 Troponin I < 0.012 ng/mL 03/17/20 17:28 C-Reactive Protein 10.5 mg/L (<10.0) H 03/19/20 06:25 NT-Pro-B Natriuret Pep 180 pg/mL (<450) 03/12/20 17:40 Total Protein 7.5 g/dL (6.3-8.2) 03/12/20 17:40 Albumin 3.6 g/dL (3.5-5.0) 03/12/20 17:40 Triglycerides 121 mg/dL (<150) 03/13/20 06:57 Cholesterol 138.87 mg/dL (0-200) 03/13/20 06:57 LDL Cholesterol Direct 72 mg/dL (<100) 03/13/20 06:57 VLDL Cholesterol 24.0 mg/dL (10-31) 03/13/20 06:57 HDL Cholesterol 32 mg/dL (>40) L 03/13/20 06:57 Interleukin 6 4.2 pg/mL (0.0-12.2) 03/14/20 05:24 TSH 0.92 uIU/mL (0.47-4.68) 03/13/20 06:57 Free T3 pg/mL 2.50 pg/mL (2.77-5.27) L 03/12/20 17:40 Urine Color YELLOW 03/15/20 10:15 Urine Appearance CLEAR 03/15/20 10:15 Urine pH 6.0 (5.0-9.0) 03/15/20 10:15 Ur Specific [place] 1.018 03/15/20 10:15 Urine Protein NEGATIVE mg/dL (NEGATIVE) 03/15/20 10:15 Urine Glucose (UA) NEGATIVE mg/dL (NEGATIVE) 03/15/20 10:15 Urine Ketones NEGATIVE mg/dL (NEGATIVE) 03/15/20 10:15 Urine Blood NEGATIVE (NEGATIVE) 03/15/20 10:15 Urine Nitrite NEGATIVE (NEGATIVE) 03/15/20 10:15 Urine Nitrite (Reflex) NEGATIVE (NEGATIVE) 03/13/20 08:05 Urine Bilirubin NEGATIVE (NEGATIVE) 03/15/20 10:15 Urine Urobilinogen NEGATIVE mg/dL (<2.0) 03/15/20 10:15 Ur Leukocyte Esterase NEGATIVE (NEGATIVE) 03/15/20 10:15 Leukocyte Esterase Rfl NEGATIVE (NEGATIVE) 03/13/20 08:05 Urine WBC (Auto) 0 /HPF 03/15/20 10:15 Urine RBC (Auto) 0 /HPF 03/15/20 10:15 Urine WBC (Reflex) < 1 /HPF 03/13/20 08:05 Urine Mucus (Auto) RARE /LPF 03/15/20 10:15 Urine Ascorbic Acid 40 (NEGATIVE) H 03/15/20 10:15 03/12/20 03/17/20 17:40 17:28 Troponin I < 0.012 < 0.012 NT-Pro-B Natriuret Pep 180 Impressions: Chest X-Ray 03/12/20 18:17 IMPRESSION: Worsening areas of consolidation in both lungs. Chest X-Ray 03/19/20 06:00 IMPRESSION: NO SIGNIFICANT INTERVAL CHANGE. Plan Health Concerns: Multiple comorbidities in an 84-year-old patient Plan of Treatment: As above Goals: Complete resolution of COVID infection Time Spent: Greater than 30 Minutes Stroke Is this a Stroke Patient?: No Acute Heart Failure - Is this a Heart Failure Patient?: No
[2020-03-21 17:33] VITALS: BP 106/62
== END 2020-03-21 19:00 | disposition home or self-care (01) | DRG 177 ==
LOC: ER 17:19 → EH 20:18 → 3W 23:12 → 3N 03-17 16:57
PROVIDERS: ADMIT Emergency Medicine; ATTEND Hospitalist
DX: U07.1 COVID-19 (principal); J12.89 Other viral pneumonia; J96.01 Acute respiratory failure with hypoxia; G93.41 Metabolic encephalopathy; J44.1 Chronic obstructive pulmonary disease with (acute) exacerbation; I47.1 Supraventricular tachycardia; I10 Essential (primary) hypertension; E78.5 Hyperlipidemia, unspecified; I25.10 Atherosclerotic heart disease of native coronary artery without angina pectoris; G47.33 Obstructive sleep apnea (adult) (pediatric); Z95.5 Presence of coronary angioplasty implant and graft
CPT/HCPCS: 36415; 71045; 80048; 80053; 80061; 81001; 82728; 82803; 82962; 83520; 83735; 83880; 84443; 84481; 84484; 85025; 85027; 85379; 85384; 85610; 85652; 85730; 86140; 87040; 87077; 87150; 87186; 93005; 93010; 94640; 94660; 94799; 96361; 96374; 99285; J0456; J0696; J1100; J1650; J1940; J3490; J7030; J7050; J7060; J7120